=== PATIENT | female | born 1965 | race Caucasian/White ===

== ENCOUNTER → 2016-12-19 | Outpatient (CLI) | payer BC ==
--- NOTE | 2016-12-20 10:00 | EEG ---
DATE OF SERVICE: 12/19/2016 INDICATIONS FOR EXAMINATION: This patient is a 51-year-old female being evaluated for visual changes and possible seizure disorder. Patient complains of muscle jerks at night as well as during the day. AGE: 51Y EEG FINDINGS: A routine 21-channel, awake digital EEG recording was accomplished utilizing the 10 - 20 international system with bipolar and referential montages. The background activity in the most alert resting state consists of a low to medium amplitude, fairly well-developed and well-sustained 7 - 8 hertz activity over the posterior head regions. This posterior rhythm attenuates to eye opening. There is a small amount of low amplitude 18 - 20 Hz beta activity seen maximally over the anterior head regions. Muscle and movement artifact was observed on several occasions during the tracing. Hyperventilation failed to add any additional information to the tracing. No further activation was noted. Photic stimulation at flash frequencies of 2 - 30 Hz produced a good symmetrical occipital driving response. No epileptiform discharges were seen. IMPRESSION: This EEG is within normal limits for the patient's age. The EEG failed to reveal any focal, lateralized or epileptiform abnormalities. Clinical correlation is recommended.
== END | disposition home or self-care (01) ==
LOC: NEUROMAIN 09:28
PROVIDERS: ATTEND Family Medicine
DX: R41.82 Altered mental status, unspecified (principal)
CPT/HCPCS: 95819

== ENCOUNTER → 2017-01-02 | Outpatient (CLI) | payer BC ==
[2017-01-02 16:06] LABS: Blood Urea Nitrogen 19 mg/dL (7-17); Non-African American GFR(MDRD) >60 (>60 ml/min/1.73 sqM)
--- NOTE | 2017-01-02 21:05 | MR ---
EXAMINATION TYPE: MR brain wo/w con DATE OF EXAM: 01/02/2017 5:40 PM COMPARISON: NONE HISTORY: Dizziness, tiredness, memory issues, and forgetfulness per patient. Brain tumor per order. TECHNIQUE: Multiplanar, multisequence images of the brain and brainstem is performed without and with IV contras t, utilizing 18 mL intravenous MultiHance . FINDINGS: Diffusion weighted images demonstrate no evidence of a recent infarct or other diffusion ab normality. There is no extra-axial fluid collection or significant white matter signal abnormality. The ventricular system and cisternal spaces are normal in size and appearance. The brain volume is age appropriate. Midline structures demonstrate normal morphology. The craniocervical junction appears within normal limits. Post contrast images demonstrate no abnormal enhancement. The dural venous sinuses appear pa tent. The visualized sinuses are clear and the globes are intact. IMPRESSION: No significant finding is seen to account for patient's symptoms.
== END | disposition home or self-care (01) ==
LOC: RADMRIMAIN 15:38
PROVIDERS: ATTEND Psychiatry & Neurology Neurology
DX: C71.9 Malignant neoplasm of brain, unspecified (principal)
CPT/HCPCS: 82565; 84520; 70553; A9577

== ENCOUNTER → 2017-10-23 | Outpatient (CLI) | payer BC ==
--- NOTE | 2017-10-23 12:44 | CONS ---
CONSULTATION DATE OF SERVICE: 10/23/2017 A 52-year-old lady who had been evaluated in the sleep center for significant excessive daytime sleepiness, snoring, movements with her legs at night and recent significant memory problems. HISTORY OF PRESENT ILLNESS/SLEEP WAKE EVALUATION: Patient's usual sleep schedule from 8:30 p.m. until 4 or 5 a.m. with, basically 7 days a week. No problem with falling asleep at all. She falls asleep very quickly. No TV in bedroom. She snores loudly. Has a significant amount of movements during the night including kicking and her covers may go out in the morning. She wakes up tired, has difficulties to pay attention, falling asleep during the day, has problems with memory, concentration, irritability, depression. [place] Sleepiness Scale is extremely high range 22. If she could take naps, she could do it every day, usually in the afternoon. She has 2 small kids and that is why she is busy and she does not have time for naps. No history of hypnagogic hallucinations, sleep paralysis or cataplexy. PAST MEDICAL HISTORY: Positive for recent memory problems, when patient does not remember what she is doing, hypertension, bipolar depression and arthritis. PAST SURGICAL HISTORY: Appendectomy, tonsillectomy, and breast reduction surgery. MEDICATIONS: Benicar, meloxicam, Latuda, omega-3 supplement. SOCIAL HISTORY: Positive for smoking less than 1 pack a day for about 35 years. Alcohol consumption rarely, several times a year. FAMILY HISTORY: Hypertension, arthritis, snoring, headaches, mental illness. REVIEW OF SYSTEMS: Significant excessive daytime sleepiness, recent memory problems when patient does not remember what she is doing. Pain in the arms and the whole body. Sleepiness, kicking at night. No fevers. No double vision. No recent chest pain. No shortness of breath. No abdominal pain. No bleeding episodes. No blood in urine. No seizure episodes. PHYSICAL EXAM: During physical exam, lady without distress. VITAL SIGNS: BP 143/94, HR 68, RR 16, height 5 feet 1-1/2 inches, weight 189, BMI 31.1. Neck 16 inches in circumference. Temperature 97.6. Oxygen saturation on room air 97%. HEENT: PERRLA, EOMI. Oropharynx moderately low position of soft palate. Short distance between soft palate and posterior pharyngeal wall. Slight restriction of nasal breathing bilaterally. Neck: Supple, no JVD. Thyroid is not palpable. LUNGS: Clear to percussion and to auscultation. Good air exchange. No wheezing or rhonchi. HEART: S1, S2 regular. No murmurs, gallops, or rubs. ABDOMEN: Slightly obese. EXTREMITIES: Ankles up to 1+ swelling of the left side. TRANSPORT AIRCREWMAN: Awake, alert, and oriented X3. Cranial nerves 2 to 7 intact. There is no fasciculation or atrophy noted. No focal deficits observed. IMPRESSION: 1. Loud snoring, wide neck, significant excessive daytime sleepiness, possible obstructive sleep apnea-hypopnea syndrome. 2. History of kicking at night, however, covers out in the morning, periodic limb movements. 3. Recent significant memory problems when patient does not remember what she is doing. 4. Significant excessive daytime sleepiness. [place] Sleepiness Scale is 22. The patient may take naps any time. Differential diagnosis should include narcolepsy and hypersomnia, although no history of hypnagogic hallucinations, sleep paralysis or cataplexy. 5. Obesity, body mass index 35.1. 6. Hypertension. 7. History of bipolar disorder. 8. History of depression. 9. History of hand arthritis. 10.Status post tonsillectomy. 11.Status post appendectomy. 12.Status post breast reduction surgery. 13.Smoker for about 35 pack years. PLAN: 1. Polysomnogram for evaluation of patient's breathing during sleep and also to check for periodic limb movements. 2. CPAP/BiPAP titration if sleep study confirms obstructive sleep apnea-hypopnea syndrome. 3. Preferable position during sleep on the side. 4. No driving if patient feels any sleepiness. Patient is aware of civil and criminal liability for unsafe driving. 5. I will see patient for follow up visit to explain results of testing and following plan. 6. If sleep study revealed to be negative for physical abnormalities of sleep, we will proceed with multiple sleep latency test for objective evaluation of patient's symptoms of excessive daytime sleepiness. Thank you very much for allowing me to participate in management of your patient. Sincerely, Adama Paez MD, PhD, FAASM Diplomat of [place] [employer] [place] [employer] Teacher of [facility] [place] MMODL / IJN: [id number] /
== END | disposition home or self-care (01) ==
LOC: SLEEP 11:00
PROVIDERS: ATTEND Internal Medicine
DX: G47.61 Periodic limb movement disorder (principal); E66.9 Obesity, unspecified; I10 Essential (primary) hypertension; F17.200 Nicotine dependence, unspecified, uncomplicated; Z68.35 Body mass index [BMI] 35.0-35.9, adult; Z86.59 Personal history of other mental and behavioral disorders; Z87.39 Personal history of other diseases of the musculoskeletal system and connective tissue; Z90.89 Acquired absence of other organs; Z98.890 Other specified postprocedural states; Z79.1 Long term (current) use of non-steroidal anti-inflammatories (NSAID)
CPT/HCPCS: 99211

== ENCOUNTER 2017-11-25 11:23 | Day surgery (SDC) | payer BC ==
[2017-11-21 10:49] VITALS: BMI 33.8
[~2017-11-25 11:23] MED LIST: LACTATED RINGERS 1,000 ML IV SCH; LIDOCAINE 1% 20 ML VIAL (10MG/ML) FOR IV START INTRADERMA PRN
[2017-11-25 11:52] VITALS: RESP 16; TEMP 98.1
[2017-11-25] MEDS ORDERED: LIDOCAINE 1% 20 ML VIAL (10MG/ML) FOR IV START INTRADERMA ONE (12:01)
[2017-11-25] MEDS ORDERED: MIDAZOLAM 2 MG/2 ML VIAL ONE (12:23)
[2017-11-25] MEDS ORDERED: PROPOFOL 10 MG/ML 20 ML VIAL IV ONE (12:23)
[2017-11-25] MEDS ORDERED: fentaNYL (PF) 50 MCG/ML 2 ML AMP ONE (12:23)
--- NOTE | 2017-11-25 13:00 | P.PCN ---
Date of Procedure: 11/25/17 Procedure(s) Performed: Procedure: Total colonoscopy. Preoperative diagnosis: Screening for neoplasia. Postoperative diagnosis: Sigmoid diverticulosis with no evidence of acute diverticulitis, strictures, polyps or cancer. Preparation: HalfLytely prep. Sedation: Was provided by anesthesia. Brief clinical history: The patient is a 52-year-old female who is referred for this evaluation for screening for neoplasia age being her risk factor. She has no family history of colon cancer. The patient has no abdominal complaints, bleeding or anemia. This would be her first colonoscopy. Procedure: With the patient on her left lateral decubitus position and after informed consent and adequate sedation, the perianal area was inspected and it did not show any fissures or fistulas. There were no masses felt on digital rectal examination. The Olympus CFQ 160L video colonoscope was then inserted in the rectum in the usual fashion and advanced to the cecum. The mucosa appeared healthy. No polyps or tumors were seen. There were multiple diverticular orifices noted scattered in the sigmoid with no evidence of acute diverticulitis or strictures. I retroflexed the endoscope in the rectum before the endoscope was withdrawn. The patient tolerated the procedure well. Plan: The patient was reassured. She will follow up with you as planned and I recommended repeat exam in 10 years.
[2017-11-25 13:01] VITALS: BP 116/75
[2017-11-25 13:28] VITALS: PULSE 67
== END 2017-11-25 13:57 | disposition home or self-care (01) ==
LOC: ORWHC2ENDO 11:23
DX: Z12.11 Encounter for screening for malignant neoplasm of colon (principal); K57.30 Diverticulosis of large intestine without perforation or abscess without bleeding; I10 Essential (primary) hypertension; F32.9 Major depressive disorder, single episode, unspecified; Z88.1 Allergy status to other antibiotic agents; Z79.1 Long term (current) use of non-steroidal anti-inflammatories (NSAID); Z79.899 Other long term (current) drug therapy; Z90.49 Acquired absence of other specified parts of digestive tract
CPT/HCPCS: 81025; G0121; J2250; J3010; J2704

== ENCOUNTER → 2018-04-08 | Outpatient (CLI) | payer BC ==
--- NOTE | 2018-04-09 11:20 | MM ---
Reason for exam: screening (asymptomatic). Last mammogram was performed 2 years and 3 months ago. History: Patient had first child at age 41. Reductions of both breasts, 2004. Physical Findings: A clinical breast exam by your physician is recommended on an annual basis and results should be correlated with mammographic findings. MG Screening Mammo w CAD Bilateral CC and MLO view(s) were taken. Prior study comparison: January 19, 2016, bilateral MG screening mammo w CAD. February 01, 2014, bilateral MG screening mammo w CAD. The breast tissue is heterogeneously dense. This may lower the sensitivity of mammography. No suspicious abnormality. No significant changes when compared with prior studies. ASSESSMENT: Negative, BI-RAD 1 RECOMMENDATION: Routine screening mammogram of both breasts in 1 year.
== END | disposition home or self-care (01) ==
LOC: RADMAMWWP 10:19
PROVIDERS: ATTEND Family Medicine
DX: Z12.31 Encounter for screening mammogram for malignant neoplasm of breast (principal)
CPT/HCPCS: 77067

== ENCOUNTER → 2020-06-02 | Outpatient (CLI) | payer BC ==
--- NOTE | 2020-06-02 10:39 | XR ---
Bilateral hips HISTORY: Pain and bilateral hips, pain in left hip 2 views of each hip are submitted Fallopian tubal ligation clips noted incidentally in the pelvis. Bone mineralization, joint spaces an d alignment are maintained. There is calcification present at the greater trochanters possibly indica ting calcific tendinitis or chronic tendon tear. Phleboliths are present within the pelvis. IMPRESSION: No significant arthropathy. MRI may be of benefit. Additional findings above.
== END | disposition home or self-care (01) ==
LOC: RADXRMAIN 09:26
PROVIDERS: ATTEND Family Medicine
DX: M25.552 Pain in left hip (principal)
CPT/HCPCS: 73521

== ENCOUNTER → 2020-12-27 | Outpatient (CLI) | payer BC ==
--- NOTE | 2021-01-01 11:16 | MM ---
Reason for exam: screening (asymptomatic). Last mammogram was performed 2 years and 9 months ago. History: Patient is postmenopausal and had first child at age 41. Reductions of both breasts, 2004. Physical Findings: A clinical breast exam by your physician is recommended on an annual basis and results should be correlated with mammographic findings. MG Screening Mammo w CAD Bilateral CC and MLO view(s) were taken. Prior study comparison: April 08, 2018, bilateral MG screening mammo w CAD. January 19, 2016, bilateral MG screening mammo w CAD. There are scattered fibroglandular densities. No significant changes when compared with prior studies. ASSESSMENT: Benign, BI-RAD 2 RECOMMENDATION: Routine screening mammogram of both breasts in 1 year.
== END | disposition home or self-care (01) ==
LOC: RADMAMWWP 14:32
PROVIDERS: ATTEND Family Medicine
DX: Z12.31 Encounter for screening mammogram for malignant neoplasm of breast (principal); Z78.0 Asymptomatic menopausal state
CPT/HCPCS: 77067

== ENCOUNTER → 2021-04-06 | Outpatient (CLI) | payer BC ==
--- NOTE | 2021-04-08 09:17 | CT ---
EXAMINATION TYPE: CT abdomen w con DATE OF EXAM: 04/06/2021 COMPARISON: None HISTORY: ventral hernia CT DLP: 1217 mGycm CONTRAST: CT scan of the abdomen and pelvis is performed with Oral Contrast and with IV Contrast, patient injec mindy with 100 mL of Isovue 300. FINDINGS: LUNG BASES-: No visible nodule. No infiltrate. LIVER/GB: Cholesterol gallstones identified. No space occupying hepatic lesion. Biliary tree is of no rmal caliber. PANCREAS: No inflammation. No distinct mass. SPLEEN: No splenic enlargement. No lesion seen. ADRENALS: No nodule. No thickening. KIDNEYS/BLADDER: No hydronephrosis. No nephrolithiasis. No distinct renal mass. Urinary bladder g rossly unremarkable. BOWEL: Normal appendix. Normal bowel caliber. No inflammation. LYMPH NODES: No greater than 1cm abdominal or pelvic lymph nodes are appreciated. AORTA: No significant abnormality. OSSEOUS STRUCTURES: No significant abnormality is seen. OTHER: No evidence of ventral hernia. IMPRESSION: 1. Cholesterol gallstones 2.No evidence of ventral hernia.
== END | disposition home or self-care (01) ==
LOC: RADCTMAIN 15:50
PROVIDERS: ATTEND Family Medicine
DX: K80.20 Calculus of gallbladder without cholecystitis without obstruction (principal)
CPT/HCPCS: 74160; Q9967

== ENCOUNTER → 2021-05-25 | Outpatient (CLI) | payer BC | END | disposition home or self-care (01) | LOC: LABWHC1 11:49 | PROVIDERS: ATTEND Surgery Plastic and Reconstructive Surgery | DX: I11.9 Hypertensive heart disease without heart failure (principal) | CPT/HCPCS: 36415; 93005 ==

== ENCOUNTER → 2021-11-14 | Outpatient (CLI) | payer BC ==
[2021-11-14 18:54] LABS: HCT 43.7 % (37.2-46.3); HGB 13.7 g/dL (12.0-15.0); MCHC 31.4 g/dL (32.0-37.0); MCV 92.6 fL (80.0-97.0); Mean Platelet Volume 11.8 fL (9.5-12.2); NRBC Per 100 WBC 0 /100 WBCS (0.0-0.0); Platelet Count 302 X 10*3/uL (140-440); RBC 4.72 X 10*6/uL (4.10-5.20); RDW 13.3 % (11.5-14.5); WBC 8.66 X 10*3/uL (4.50-10.00)
== END | disposition home or self-care (01) ==
LOC: LABPAT 12:12
PROVIDERS: ATTEND Surgery Plastic and Reconstructive Surgery
DX: Z01.812 Encounter for preprocedural laboratory examination (principal); K81.9 Cholecystitis, unspecified
CPT/HCPCS: 84132; 85027

== ENCOUNTER 2021-11-16 07:40 | Day surgery (SDC) | payer BC ==
[2021-11-13 12:40] VITALS: BMI 36.6
--- NOTE | 2021-11-16 06:56 | P.GSHP ---
History of Present Illness H&P Date: 11/16/21 CHIEF COMPLAINT: Cholecystitis HISTORY OF PRESENT ILLNESS: The patient is a 56-year-old female who presents with history of epigastric including right upper quadrant abdominal pain. She underwent diagnostic studies for her gallbladder. Separately her clinical picture was consistent with cholecystitis. Now she presents for surgical intervention. PAST MEDICAL HISTORY: Please see list PAST SURGICAL HISTORY: Please see list MEDICATIONS: Please see list ALLERGIES: Please see list SOCIAL HISTORY: Please see list FAMILY HISTORY: Please see list REVIEW OF ORGAN SYSTEMS: CONSTITUTIONAL: No reports of fevers or chills. HEENT: Denies any troubles with the vision or hearing. PHYSICAL EXAM: VITAL SIGNS: Afebrile vital signs stable GENERAL: Well-developed pleasant in no acute distress. HEENT: No scleral icterus. Extraocular movements grossly intact. Moist buccal mucosa. NECK: Supple without lymphadenopathy. CHEST: Unlabored respirations. Equal bilateral excursions. CARDIOVASCULAR: Regular rate regular rhythm rhythm. Distal 2+ pulses. ABDOMEN: Soft, nondistended. Tender along the epigastrium and right upper quadrant. MUSCULOSKELETAL: No clubbing, cyanosis, or edema. NEURO: Cranial nerves II to XII within normal limits. No focal or lateralizing signs. PSYCH: Alert and oriented to person, place and time. SKIN: Well-perfused good skin turgor. ASSESSMENT: 1. Epigastric and right upper quadrant abdominal pain 2. Chronic cholecystitis 3. Symptomatic gallstones. PLAN: 1. Will need a robotic cholecystectomy possible open. Benefits and risks were described. 2. Heparin for DVT prophylaxis 5000 units. 3. Antibiotic prophylaxis. Past Medical History Past Medical History: Hypertension Additional Past Medical History / Comment(s): HEART MURMUR SINCE CHILD. GALLBLADDER DISORDER. RINGING IN BILAT EARS History of Any Multi-Drug Resistant Organisms: None Reported Past Surgical History: Appendectomy, Breast Surgery, Tonsillectomy, Tubal Liga tion Additional Past Surgical History / Comment(s): BREAST REDUCTION, COLONOSCOPY, RECTAL SURGERY AFTER SON BORN Past Anesthesia/Blood Transfusion Reactions: Motion Sickness Smoking Status: Former smoker, Vaper - Past Family History Mother Family Medical History: Cancer Medications and Allergies Home Medications Medication Instructions Recorded Confirmed Type Meloxicam 15 mg PO DAILY 11/21/17 11/13/21 History Olmesartan/Hydrochlorothiazide 1 each PO DAILY 11/13/21 11/13/21 History [Benicar Hct 40-12.5 mg Tablet] Allergies Allergy/AdvReac Type Severity Reaction Status Date / Time azithromycin Allergy Rapid Verified 11/13/21 12:31 [From Zithromax Z-Adal] Heart Rate
[~2021-11-16 07:40] MED LIST changes: +ACETAMINOPHEN TAB 500 MG TAB PO PRN; +GABAPENTIN 300 MG CAP PO PRN; +HEPARIN SODIUM,PORCINE/PF 5,000 UNIT/0.5 ML SYRINGE SQ PRN; +INDOCYANINE GREEN 25 MG VIAL IV PRN; -LACTATED RINGERS 1,000 ML IV SCH; -LIDOCAINE 1% 20 ML VIAL (10MG/ML) FOR IV START INTRADERMA PRN; +SCOPOLAMINE 1.5MG/72HR PATCH TRANSDERM PRN
[2021-11-16] MEDS ORDERED: HYDROmorphone 0.5 MG/0.5 ML SYRINGE IVP PRN (07:55)
[2021-11-16] MEDS ORDERED: LACTATED RINGERS 1,000 ML IV SCH (07:55)
[2021-11-16] MEDS ORDERED: ONDANSETRON 4 MG/2 ML VIAL IVP ONE (07:55)
[2021-11-16] MEDS ORDERED: DEXAMETHASONE SOD PHOSPHATE 4 MG/ML 1 ML VIAL IV ONE (07:55)
[2021-11-16] MEDS ORDERED: SCOPOLAMINE 1.5MG/72HR PATCH TRANSDERM ONE (07:55)
[2021-11-16] MEDS ORDERED: MIDAZOLAM 2 MG/2 ML VIAL IV PRN (07:55)
[2021-11-16] MEDS ORDERED: MIDAZOLAM 2 MG/2 ML VIAL ONE (09:08)
[2021-11-16] MEDS ORDERED: PHENYLEPHRINE-0.9% NACL SYG 1,000 MCG/10 ML SYRINGE ONE (09:08)
[2021-11-16] MEDS ORDERED: SUCCINYLCHOLINE CHLORIDE 100 MG/5 ML SYR IV ONE (09:08)
[2021-11-16] MEDS ORDERED: fentaNYL (PF) 50 MCG/ML 2 ML AMP ONE (09:08)
[2021-11-16] MEDS ORDERED: NEOSTIGMINE 1 MG/ML 10 ML VIAL ONE (09:08)
[2021-11-16] MEDS ORDERED: HYDROmorphone (PF) 1 MG/ML ONE (09:08)
[2021-11-16] MEDS ORDERED: PROPOFOL 10 MG/ML 20 ML VIAL IV ONE (09:08)
[2021-11-16] MEDS ORDERED: ROCURONIUM 10 MG/ML (5 ML VIAL) IV ONE (09:08)
[2021-11-16] MEDS ORDERED: INDOCYANINE GREEN 25 MG VIAL IV ONE (09:08)
[2021-11-16] MEDS ORDERED: GLYCOPYRROLATE 0.2 MG/ML 2 ML VIAL ONE (09:08)
[2021-11-16] MEDS ORDERED: LIDOCAINE 1% INJ 10MG/ML (20 ML MDV) ONE (09:08)
[2021-11-16 09:35] LABS: ALT 31 U/L (4-34); AST 25 U/L (14-36); African American GFR (CKD) >90 (>60 ml/min/1.73 sqM); Alkaline Phosphatase 82 U/L (38-126); Anion Gap 3 mmol/L; Blood Urea Nitrogen 21 mg/dL (7-17); Calcium 8.9 mg/dL (8.4-10.2); Carbon Dioxide 32 mmol/L (22-30); Chloride 102 mmol/L (98-107); Glucose 104 mg/dL (74-99); Non-African American GFR(CKD) >90 (>60 ml/min/1.73 sqM); Potassium 3.7 mmol/L (3.5-5.1); Sodium 137 mmol/L (137-145); Total Bilirubin 0.8 mg/dL (0.2-1.3); Total Protein 6.6 g/dL (6.3-8.2)
[2021-11-16] MEDS ORDERED: BUPIVACAIN-EPI 0.25%-1:200,000 30 ML VIAL SQ ONE ×2 (09:42→09:47)
[2021-11-16] MEDS ORDERED: LACTATED RINGERS 1,000 ML IV ONE (10:45)
[2021-11-16 10:48] VITALS: TEMP 97
--- NOTE | 2021-11-16 10:55 | P.OP ---
Date of Procedure: 11/16/21 Description of Procedure: SURGEON: JAILYN PARADA MD PREOPERATIVE DIAGNOSES: 1. Chronic cholecystitis 2. Symptomatic gallstones 3. Hypertension 4. Morbid obesity due to excess calories, BMI 37.9 POSTOPERATIVE DIAGNOSES: 1. Chronic cholecystitis 2. Symptomatic gallstones 3. Hypertension 4. Morbid obesity due to excess calories, BMI 37.9 5. Peritoneal adhesions OPERATION: 1. Robotic-assisted da Farida Xi laparoscopic cholecystectomy, multiport with FIREFLY 2. Robotic-assisted da Farida Xi laparoscopic lysis of adhesions ESTIMATED BLOOD LOSS: 5 mL. SPECIMENS REMOVED: Gallbladder. COMPLICATIONS: None. OPERATIVE FINDINGS: 1. Adhesions along the infundibulum and body of the gallbladder consistent with chronic cholecystitis 2. Moderate bulb was fundus requiring dome down technique for cholecystectomy 3. Mildly dilated common bile duct 4. Gallstones over 0.5 cm to 1 cm palpated within the gallbladder INDICATIONS: The patient is a 56 year-old female who presents with epigastric right upper quadrant pain, symptomatic gallstones. Surgical intervention with cholecystectomy was described. Robotic assisted laparoscopic approach was described. Benefits and risks of the procedure including but not limited to bleeding, infection, injury to the biliary tree was reviewed. Informed consent was obtained. DESCRIPTION OF PROCEDURE: Patient was brought to the operating room, placed in supine position. After general induction, the abdomen had been prepped and draped in standard sterile fashion. The robotic da Farida XI system was primed. After a timeout protocol was performed, the patient had been prepped and draped in standard sterile fashion. The patient was injected with indocyanine green. A 5 mm 0 degrees laparoscopic trocar entry was performed along the left upper quadrant. The abdomen insufflated to 15 mmHg pressure which was tolerated well. Diagnostic laparoscopy demonstrated no injury to bowel viscera or mesentery. The liver surface was unremarkable. A moderately distended gallbladder was identified adding complexity to the case. Next, two 8 mm robotic ports were placed along the right upper abdomen. The camera 8-mm port was maintained along the epigastrium. Another 8 mm port was placed along the left upper abdominal wall after exchanging the 5 mm port. Please note that the ports were placed at least 10 to 15 cm away from the target anatomy of the gallbladder. The robot was docked along the left lateral abdomen. The patient was repositioned in reverse Trendelenburg position with the right side up. Using a grasper for arm 3, a grasper for arm 4, including hook cautery for arm 1, the robotic system was docked and primed as described. Instruments were interchanged by the pharmacist assistant including hook cautery, Bovie cautery and clip appliers. I had sat at the console. The gallbladder was reflected towards the dome of the liver. The gallbladder was moderately distended adding complexity to the case. Initial dissection was performed on the gallbladder infundibulum using indocyanine green to illuminate the cystic duct and common bile duct. Due to moderate distention of the infundibulum, dome down technique was performed removing the gallbladder from the hepatic fossa starting from the fundus towards the infundibulum. Using a sponge, the liver was reflected towards the diaphragm and starting at the gallbladder fundus, hook cautery was used to find the avascular plane between the liver and the gallbladder. As the gallbladder was dissected from the hepatic fossa, hemostasis was checked. Next, indocyanine green was used to confirm the common bile duct as well as cystic duct. The cystic duct was short and dissection was performed at the junction of the cystic duct and infundibulum. The common bile duct was mildly dilated. The infundibulum was retracted laterally to expose the cystic duct away from the common bile duct. The cystic duct was dissected free from its surrounding tissue. FIREFLY was used to identify the cystic structures. A critical view of safety was obtained. Large PLASTIC clips were used throughout the entire case. Using a clip bowling ball weigher and packer, a clip was placed at the junction of the infundibulum and cystic duct. The cystic duct was divided using vessel sealer. Next, the cystic artery was divided using vessel sealer. Electro-Bovie cautery and vessel sealer was used to remove the gallbladder without decompression. Hemostasis was checked and found to be adequate. The robot was undocked. I re-scrubbed into the case. A 10 mm Endo Catch bag was used to remove the gallbladder in total via the left upper quadrant incision after widening the incision. The specimen was removed from the abdominal cavity. All pneumoperitoneum instruments were evacuated from the abdominal cavity. The incisions were cleansed using dilute hydrogen peroxide. The incisions were reapproximated using 4-0 Monocryl in an interrupted subcuticular fashion. Please note along the trocar sites, local anesthetic was placed as a field block prior to insertion of all instruments. Liquid glue was applied to the skin. At the end of the procedure needle, sponge, and instrument count had been verified correct by the director medical surgical. The patient was transferred to postanesthesia care unit in stable condition. Intraoperative films were shared with the patient's family who were pleased with the level of care. Plan - Discharge Summary Discharge Rx Participant: Yes New Discharge Prescriptions: New Simethicone [Gas-X] 125 mg PO AC-TID PRN #20 capsule PRN Reason: Pain Acetaminophen Tab [Tylenol Tab] 1,000 mg PO Q6HR PRN #30 tablet PRN Reason: Pain Continue Meloxicam 15 mg PO DAILY Olmesartan/Hydrochlorothiazide [Benicar Hct 40-12.5 mg Tablet] 1 each PO DAILY Discharge Medication List Meloxicam 15 mg PO DAILY 11/21/17 [History] Olmesartan/Hydrochlorothiazide [Benicar Hct 40-12.5 mg Tablet] 1 each PO DAILY 11/13/21 [History] Acetaminophen Tab [Tylenol Tab] 1,000 mg PO Q6HR PRN #30 tablet 11/16/21 [Rx] Simethicone [Gas-X] 125 mg PO AC-TID PRN #20 capsule 11/16/21 [Rx] Follow up Appointment(s)/Referral(s): Jailyn Parada MD [STAFF PHYSICIAN] - 11/20/21 (Telehealth) Patient Instructions/Handouts: Laparoscopic Cholecystectomy (DC), Low Fat Diet (DC) Activity/Diet/Wound Care/Special Instructions: Recommend low-fat diet for the next 2 days. No lifting over 10 pounds in 2 weeks until November 30. May shower. No bath tub soaks for two weeks until November 30. Diet as tolerated. Use Tylenol, simethicone and ibuprofen or Aleve scheduled for the next 24-48 hours for best pain relief. Use ice along incisions for today to prevent swelling. Discharge Disposition: HOME SELF-CARE
[2021-11-16] MEDS ORDERED: HYDROmorphone 0.5 MG/0.5 ML SYRINGE IVP ONE (10:58)
[2021-11-16] MEDS ORDERED: RACEPINEPHRINE 2.25% NEB 0.5 ML NEBU INHALATION ONE (11:04)
[2021-11-16] MEDS ORDERED: DEXAMETHASONE SOD PHOSPHATE 10 MG/ML 1 ML VIAL IVP ONE (11:15)
[2021-11-16 12:01] VITALS: RESP 16
[2021-11-16 12:15] VITALS: BP 117/60; PULSE 89
== END 2021-11-16 13:03 | disposition home or self-care (01) ==
LOC: OR 07:40
PROVIDERS: ATTEND Surgery Plastic and Reconstructive Surgery
DX: K80.10 Calculus of gallbladder with chronic cholecystitis without obstruction (principal); K82.8 Other specified diseases of gallbladder; K66.0 Peritoneal adhesions (postprocedural) (postinfection); I10 Essential (primary) hypertension; R01.1 Cardiac murmur, unspecified; H93.13 Tinnitus, bilateral; Z90.49 Acquired absence of other specified parts of digestive tract; Z98.51 Tubal ligation status; Z98.890 Other specified postprocedural states; F17.290 Nicotine dependence, other tobacco product, uncomplicated; Z80.9 Family history of malignant neoplasm, unspecified; Z79.1 Long term (current) use of non-steroidal anti-inflammatories (NSAID); Z79.899 Other long term (current) drug therapy; Z88.1 Allergy status to other antibiotic agents; E66.01 Morbid (severe) obesity due to excess calories; Z68.37 Body mass index [BMI] 37.0-37.9, adult
CPT/HCPCS: 47563; S2900; 80053; 88304

== ENCOUNTER → 2022-06-28 | Outpatient (CLI) | payer BC ==
--- NOTE | 2022-06-28 13:59 | CT ---
EXAMINATION TYPE: CT abdomen wo con DATE OF EXAM: 06/28/2022 COMPARISON: 04/06/2021 HISTORY: PER PT SHE HAS LUQ PAIN. SHARP PAIN UNDER RIBS WHEN BREATHING CT DLP: 723 mGycm Automated exposure control for dose reduction was used. TECHNIQUE: Helical acquisition of images was performed from the lung bases through the top of iliac crest to include entire abdomen. CONTRAST: Performed with Oral Contrast and without IV contrast. FINDINGS: The lung bases are clear. There is surgical absence of the gallbladder and no biliary ductal dilatation. There is no organomegaly involving the liver, pancreas, spleen or adrenal glands. The bowel loops are normal in caliber and there is no evidence of obstruction. There is mild to moder ate abnormal density in the pericolic fat in the region of the splenic flexure highly suggestive of a cute diverticulitis. There is no discrete abscess. There is no free intraperitoneal air or fluid. There are no renal calcifications or hydronephrosis. The caliber the abdominal aorta is normal. There is no retroperitoneal adenopathy. Visualized osseous structures are intact. IMPRESSION: 1. Findings highly suggestive of acute diverticulitis of the colon in the region of the splenic flexu re. There is no bowel obstruction or abscess. There is no free intraperitoneal air or fluid. 2. Cholecystectomy performed in the interval since the prior study.
== END | disposition home or self-care (01) ==
LOC: RADCTMAIN 12:21
PROVIDERS: ATTEND Family Medicine
DX: R10.32 Left lower quadrant pain (principal); Z90.49 Acquired absence of other specified parts of digestive tract
CPT/HCPCS: 74150; Q9967

== ENCOUNTER 2023-07-23 10:21 | Emergency (ER) | payer BC ==
[2023-07-23 10:41] VITALS: RESP 18; TEMP 99.7
--- NOTE | 2023-07-23 11:15 | XR ---
EXAMINATION TYPE: XR chest 2V DATE OF EXAM: 07/23/2023 COMPARISON: NONE TECHNIQUE: PA and lateral views submitted. HISTORY: Dizziness FINDINGS: Mild hyperinflation correlate for COPD. Arthropathy in the AC joints. Calcification in the soft tissue the neck likely related to carotid artery atherosclerotic disease. The lungs are clear and there is no pneumothorax, pleural effusion, or focal pneumonia. Heart size normal and no overt failure. Osseous structures demonstrate hypertrophic and degenerative changes of the spine. IMPRESSION: 1. No acute process.
[2023-07-23 11:18] LABS: Prothrombin Time 11.4 sec (10.0-12.5)
[2023-07-23 11:23] LABS: Basophils % (A) 0 %; Eosinophils # (A) 0.2 k/uL (0-0.7); Eosinophils % (A) 2 %; HCT 43.4 % (34.0-46.0); HGB 14.4 gm/dL (11.4-16.0); Lymphocytes # (A) 1.5 k/uL (1.0-4.8); Lymphocytes % (A) 22 %; MCH 30.3 pg (25.0-35.0); MCHC 33.1 g/dL (31.0-37.0); MCV 91.5 fL (80.0-100.0); Mean Platelet Volume 9.1; Monocytes # (A) 0.2 k/uL (0-1.0); Monocytes % (A) 3 %; Neutrophils # (A) 4.8 k/uL (1.3-7.7); Neutrophils % (A) 71 %; Platelet Count 249 k/uL (150-450); RBC 4.75 m/uL (3.80-5.40); RDW 13.4 % (11.5-15.5); WBC 6.9 k/uL (3.8-10.6)
[2023-07-23 11:28] LABS: ALT 52 U/L (4-34); AST 37 U/L (14-36); African American GFR (CKD) >90 (>60 ml/min/1.73 sqM); Albumin 4.7 g/dL (3.5-5.0); Alkaline Phosphatase 106 U/L (38-126); Anion Gap 11 mmol/L; Blood Urea Nitrogen 17 mg/dL (7-17); Calcium 9.6 mg/dL (8.4-10.2); Carbon Dioxide 25 mmol/L (22-30); Chloride 107 mmol/L (98-107); Glucose 106 mg/dL (74-99); Non-African American GFR(CKD) >90 (>60 ml/min/1.73 sqM); Sodium 143 mmol/L (137-145); Total Bilirubin 0.8 mg/dL (0.2-1.3); Total Protein 7.4 g/dL (6.3-8.2)
[2023-07-23 12:35] LABS: Appearance,Urine Clear (Clear); Bilirubin,Urine Negative (Negative); Blood,Urine Negative (Negative); Color,Urine Colorless; Glucose,Urine (UA) Negative (Negative); Ketones,Urine Negative (Negative); Leukocyte Esterase,Urine Negative (Negative); Nitrite,Urine Negative (Negative); PH, Urine 6.5 (5.0-8.0); Protein,Urine Negative (Negative); Specific Gravity,Urine 1.015 (1.001-1.035); Urobilinogen,Urine <2.0 mg/dL (<2.0)
[2023-07-23] MEDS ORDERED: SODIUM CHLORIDE 0.9% 1,000 ML IV ONE (12:37)
--- NOTE | 2023-07-23 14:00 | ED ---
General Adult HPI - General Chief complaint: Dizziness Stated complaint: weakness, light headed took bp at home over 200 Time Seen by Provider: 07/23/23 10:35 Source: patient Mode of arrival: ambulatory Limitations: no limitations - History of Present Illness Initial comments: 57-year-old female presents emergency department reporting to some sophiae dness. States that she woke in the middle the night and felt lightheaded. She thought it was because she was tired and therefore went back to sleep. She woke up again and continued to be lightheaded. States that she feels fuzzy. She took her blood pressure and it was high. Her blood pressure is normally between 150-160 systolic however it was over 200. She did take her blood pressure medication at home today. She denies any headache visual changes. No chest pain or shortness of breath. Denies vertiginous symptoms. No ear pain or sore throat. Denies any abdominal pain. No recent medication changes. No other alleviating, precipitating or modifying factors - Related Data Home Medications Medication Instructions Recorded Confirmed Losartan [Cozaar] 25 mg PO DAILY 07/23/23 07/23/23 Allergies Allergy/AdvReac Type Severity Reaction Status Date / Time azithromycin Allergy Rapid Verified 07/23/23 13:02 [From Zithromax Z-Adal] Heart Rate Review of Systems ROS Statement: Those systems with pertinent positive or pertinent negative responses have been documented in the HPI. ROS Other: All systems not noted in ROS Statement are negative. Past Medical History Past Medical History: Hypertension Additional Past Medical History / Comment(s): HEART MURMUR SINCE CHILD. GALLB LADDER DISORDER. RINGING IN BILAT EARS History of Any Multi-Drug Resistant Organisms: None Reported Past Surgical History: Appendectomy, Breast Surgery, Tonsillectomy, Tubal Ligation Additional Past Surgical History / Comment(s): BREAST REDUCTION, COLONOSCOPY, RECTAL SURGERY AFTER SON BORN Past Anesthesia/Blood Transfusion Reactions: Motion Sickness Past Psychological History: Depression Smoking Status: Former smoker, Vaper Past Alcohol Use History: None Reported Past Drug Use History: None Reported - Past Family History Mother Family Medical History: Cancer General Exam Limitations: no limitations General appearance: alert, in no apparent distress Head exam: Present: atraumatic, normocephalic, normal inspection Eye exam: Present: normal appearance, PERRL, EOMI. Absent: scleral icterus, conjunctival injection, periorbital swelling ENT exam: Present: normal exam, mucous membranes moist Neck exam: Present: normal inspection. Absent: tenderness, meningismus, lympha denopathy Respiratory exam: Present: normal lung sounds bilaterally. Absent: respiratory distress, wheezes, rales, rhonchi, stridor Cardiovascular Exam: Present: regular rate, normal rhythm, normal heart sounds. Absent: systolic murmur, diastolic murmur, rubs, gallop, clicks GI/Abdominal exam: Present: soft, normal bowel sounds. Absent: distended, tenderness, guarding, rebound, rigid Extremities exam: Present: normal inspection, full ROM, normal capillary refill. Absent: tenderness, pedal edema, joint swelling, calf tenderness Back exam: Present: normal inspection Neurological exam: Present: alert, oriented X3, CN II-XII intact Psychiatric exam: Present: normal affect, normal mood Skin exam: Present: warm, dry, intact, normal color. Absent: rash Course Vital Signs 07/23/23 07/23/23 07/23/23 10:31 12:14 12:45 Temperature 99.7 F H Pulse Rate 79 77 Respiratory 18 Rate Blood Pressure 193/106 166/87 Blood Pressure 160/84 [Sitting] Blood Pressure 156/83 [Standing] Blood Pressure 148/82 [Supine] O2 Sat by Pulse 98 Oximetry 07/23/23 14:05 Temperature Pulse Rate 67 Respiratory 18 Rate Blood Pressure 177/98 Blood Pressure [Sitting] Blood Pressure [Standing] Blood Pressure [Supine] O2 Sat by Pulse 97 Oximetry Medical Decision Making - Medical Decision Making Was pt. sent in by a medical professional or institution (, PA, CHUCKING MACHINE OPERATOR, urgent care, hospital, or intermediate...) When possible be specific @ -No Did you speak to anyone other than the patient for history (EMS, parent, family, police, friend...)? What history was obtained from this source @ -No Did you review nursing and triage notes (agree or disagree)? Why? @ -I reviewed and agree with nursing and triage notes Were old charts reviewed (outside hosp., previous admission, EMS record, old EKG, old radiological studies, urgent care reports/EKG's, intermediate records)? Report findings @ -No old charts were reviewed Differential Diagnosis (chest pain, altered mental status, abdominal pain women, abdominal pain men, vaginal bleeding, weakness, fever, dyspnea, syncope, headache, dizziness, GI bleed, back pain, seizure, CVA, palpatations, mental health, musculoskeletal)? @ -Differential Dizziness: Benign paroxysmal positional Vertigo, Menieres disease, otitis media, acoustic neuroma, vertebrobasilar insufficiency, cerebellar stroke, encephalitis, hypovolemic, arrhythmia, coronary artery syndrome, anemia, this is not meant to be an all-inclusive list EKG interpreted by me (3pts min.). @ -Yes and demonstrates sinus rhythm rate of 67. MI interval 156. QRS 98. QTC 387. No acute ST segment elevations or depressions X-rays interpreted by me (1pt min.). @ -Yes and demonstrates no acute process CT interpreted by me (1pt min.). @ -None done U/S interpreted by me (1pt. min.). @ -None done What testing was considered but not performed or refused? (CT, X-rays, U/S, labs)? Why? @ -None What meds were considered but not given or refused? Why? @ -None Did you discuss the management of the patient with other professionals (professionals i.e. , PA, CHUCKING MACHINE OPERATOR, lab, RT, psych nurse, dialysis social worker, cook fruit, teacher, chief clinical officer, telephonic case manager)? Give summary @ -No Was smoking cessation discussed for >3mins.? @ -No Was critical care preformed (if so, how long)? @ -No Were there social determinants of health that impacted care today? How? (Homelessness, low income, unemployed, alcoholism, drug addiction, transportation, low edu. Level, literacy, decrease access to med. care, usp, rehab)? @ -No Was there de-escalation of care discussed even if they declined (Discuss DNR or withdrawal of care, Hospice)? DNR status @ -No What co-morbidities impacted this encounter? (DM, HTN, Smoking, COPD, CAD, Cancer, CVA, ARF, Chemo, Hep., AIDS, mental health diagnosis, sleep apnea, morbid obesity)? @ -Hypertension Was patient admitted / discharged? Hospital course, mention meds given and route, prescriptions, significant lab abnormalities, going to OR and other pertinent info. @ -Upon arrival patient was placed into room 152. Thorough history and physical exam was performed. 12 EKG was obtained. Laboratory studies are conducted. Patient's blood pressure does improve on her own. Upon return results I did discuss them with the patient. Discussed diagnosis, differential and treatment options. Patient feels improved at this time after IV fluids. She'll be discharged home and instructed to follow up with her primary care doct or. May obtain an echo (last was 2 months ago) or carotid ultrasound if her symptoms persist. Keep a log of her blood pressures and follow up with her doctor. Return for any new or worsening symptoms. Patient was agreeable to plan and was discharged in stable condition Undiagnosed new problem with uncertain prognosis? @ -yes Drug Therapy requiring intensive monitoring for toxicity (Heparin, Nitro, Insulin, Cardizem)? @ -No Were any procedures done? @ -No Diagnosis/symptom? @ -Near-syncope, accelerated hypertension Acute, or Chronic, or Acute on Chronic? @ -Acute Uncomplicated (without systemic symptoms) or Complicated (systemic symptoms)? @ -Complicated Side effects of treatment? @ -No Exacerbation, Progression, or Severe Exacerbation? @ -No Poses a threat to life or bodily function? How? (Chest pain, [place], [place], pneumonia, PE, COPD, DKA, ARF, appy, cholecystitis, CVA, Diverticulitis, Homicidal, Suicidal, threat to staff... and all critical care pts) @ -No - Lab Data Result diagrams: 07/23/23 10:35 07/23/23 10:35 Lab Results 07/23/23 07/23/23 07/23/23 Range/Units 10:35 10:35 10:35 WBC 6.9 (3.8-10.6) k/uL RBC 4.75 (3.80-5.40) m/uL Hgb 14.4 (11.4-16.0) gm/dL Hct 43.4 (34.0-46.0) % MCV 91.5 (80.0-100.0) fL MCH 30.3 (25.0-35.0) pg MCHC 33.1 (31.0-37.0) g/dL RDW 13.4 (11.5-15.5) % Plt Count 249 (150-450) k/uL MPV 9.1 Neutrophils % 71 % Lymphocytes % 22 % Monocytes % 3 % Eosinophils % 2 % Basophils % 0 % Neutrophils # 4.8 (1.3-7.7) k/uL Lymphocytes # 1.5 (1.0-4.8) k/uL Monocytes # 0.2 (0-1.0) k/uL Eosinophils # 0.2 (0-0.7) k/uL Basophils # 0.0 (0-0.2) k/uL PT (10.0-12.5) sec INR (<1.2) Sodium 143 (137-145) mmol/L Potassium 4.0 (3.5-5.1) mmol/L Chloride 107 (98-107) mmol/L Carbon Dioxide 25 (22-30) mmol/L Anion Gap 11 mmol/L BUN 17 (7-17) mg/dL Creatinine 0.55 (0.52-1.04) mg/dL Est GFR (CKD-EPI)AfAm >90 (>60 ml/min/1.73 sqM) Est GFR (CKD-EPI)NonAf >90 (>60 ml/min/1.73 sqM) Glucose 106 H (74-99) mg/dL Calcium 9.6 (8.4-10.2) mg/dL Total Bilirubin 0.8 (0.2-1.3) mg/dL AST 37 H (14-36) U/L ALT 52 H (4-34) U/L Alkaline Phosphatase 106 (38-126) U/L Troponin I <0.012 (0.000-0.034) ng/mL Total Protein 7.4 (6.3-8.2) g/dL Albumin 4.7 (3.5-5.0) g/dL Urine Color Urine Appearance (Clear) Urine pH (5.0-8.0) Ur Specific [place] (1.001-1.035) Urine Protein (Negative) Urine Glucose (UA) (Negative) Urine Ketones (Negative) Urine Blood (Negative) Urine Nitrite (Negative) Urine Bilirubin (Negative) Urine Urobilinogen (<2.0) mg/dL Ur Leukocyte Esterase (Negative) Influenza Type A (PCR) (Not Detectd) Influenza Type B (PCR) (Not Detectd) RSV (PCR) (Not Detectd) SARS-CoV-2 (PCR) (Not Detectd) 07/23/23 07/23/23 07/23/23 Range/Units 10:35 12:07 12:17 WBC (3.8-10.6) k/uL RBC (3.80-5.40) m/uL Hgb (11.4-16.0) gm/dL Hct (34.0-46.0) % MCV (80.0-100.0) fL MCH (25.0-35.0) pg MCHC (31.0-37.0) g/dL RDW (11.5-15.5) % Plt Count (150-450) k/uL MPV Neutrophils % % Lymphocytes % % Monocytes % % Eosinophils % % Basophils % % Neutrophils # (1.3-7.7) k/uL Lymphocytes # (1.0-4.8) k/uL Monocytes # (0-1.0) k/uL Eosinophils # (0-0.7) k/uL Basophils # (0-0.2) k/uL PT 11.4 (10.0-12.5) sec INR 1.0 (<1.2) Sodium (137-145) mmol/L Potassium (3.5-5.1) mmol/L Chloride (98-107) mmol/L Carbon Dioxide (22-30) mmol/L Anion Gap mmol/L BUN (7-17) mg/dL Creatinine (0.52-1.04) mg/dL Est GFR (CKD-EPI)AfAm (>60 ml/min/1.73 sqM) Est GFR (CKD-EPI)NonAf (>60 ml/min/1.73 sqM) Glucose (74-99) mg/dL Calcium (8.4-10.2) mg/dL Total Bilirubin (0.2-1.3) mg/dL AST (14-36) U/L ALT (4-34) U/L Alkaline Phosphatase (38-126) U/L Troponin I (0.000-0.034) ng/mL Total Protein (6.3-8.2) g/dL Albumin (3.5-5.0) g/dL Urine Color Colorless Urine Appearance Clear (Clear) Urine pH 6.5 (5.0-8.0) Ur Specific [place] 1.015 (1.001-1.035) Urine Protein Negative (Negative) Urine Glucose (UA) Negative (Negative) Urine Ketones Negative (Negative) Urine Blood Negative (Negative) Urine Nitrite Negative (Negative) Urine Bilirubin Negative (Negative) Urine Urobilinogen <2.0 (<2.0) mg/dL Ur Leukocyte Esterase Negative (Negative) Influenza Type A (PCR) Not Detected (Not Detectd) Influenza Type B (PCR) Not Detected (Not Detectd) RSV (PCR) Not Detected (Not Detectd) SARS-CoV-2 (PCR) Not Detected (Not Detectd) Disposition Clinical Impression: Near syncope, Hypertension Disposition: HOME SELF-CARE Condition: Stable Instructions (If sedation given, give patient instructions): Dizziness (ED) Additional Instructions: Please keep a blood pressure log. Check your blood pressure 3 times a day. I recommend echo of your heart and Holter monitoring if your symptoms persist. Return for any new or worsening symptoms Is patient prescribed a controlled substance at d/c from ED?: No Referrals: Ray Bangura DO [Primary Care Provider] - 1-2 days Time of Disposition: 14:00
[2023-07-23 14:27] VITALS: BP 177/98; PULSE 67
== END 2023-07-23 14:06 | disposition home or self-care (01) ==
LOC: EC 10:21
DX: I10 Essential (primary) hypertension (principal); R55 Syncope and collapse; F17.290 Nicotine dependence, other tobacco product, uncomplicated; Z20.822 Contact with and (suspected) exposure to COVID-19; Z79.899 Other long term (current) drug therapy; Z88.1 Allergy status to other antibiotic agents
CPT/HCPCS: 36415; 71046; 80053; 81003; 84484; 85025; 85610; 87636; 93005; 96360; 99284

== ENCOUNTER → 2023-07-28 | Outpatient (CLI) | payer BC ==
--- NOTE | 2023-07-29 09:00 | MM ---
Reason for Exam: Screening (asymptomatic). Last mammogram was performed 2 year(s) and 7 month(s) ago. Patient History: Menarche at age 10. First Full-Term at age 41. Late child-bearing (after 30). Postmenopausal. 2003, Bilateral Reduction. Risk Values: Justine 5 year model risk: 1.9%. NCI Lifetime model risk: 11.7%. Prior Study Comparison: 01/19/2016 Bilateral Screening Mammogram, [facility]. 04/08/2018 Bilateral Screening Mammogram, [facility]. 12/27/2020 Bilateral Screening Mammogram, [facility]. Tissue Density: The breast tissue is heterogeneously dense. This may lower the sensitivity of mammography. Findings: Analyzed By CAD. There is no suspicious group of microcalcifications or new suspicious mass in either breast. Overall Assessment: Benign, BI-RAD 2 Management: Screening Mammogram of both breasts in 1 year. . Patient should continue monthly self-breast exams. A clinical breast exam by your physician is recommended on an annual basis. This exam should not preclude additional follow-up of suspicious palpable abnormalities. Note on Justine scores and lifetime risk: 1. A Justine score greater than 3% is considered moderate risk. If this is the case, consider specialist referral to assess eligibility for a risk reducing agent. 2. If overall lifetime risk for the development of breast cancer is 20% or higher, the patient may qualify for future screening with alternating mammogram and breast MRI. Electronically signed and approved by: Arie Estes M.D. Radiologis
== END | disposition home or self-care (01) ==
LOC: RADMAMWWP 12:58
PROVIDERS: ATTEND Family Medicine
DX: Z12.31 Encounter for screening mammogram for malignant neoplasm of breast (principal); Z78.0 Asymptomatic menopausal state
CPT/HCPCS: 77067

== ENCOUNTER 2023-08-04 05:40 | Observation (INO) | payer BC ==
[2023-08-04 07:05] LABS: Basophils % (A) 0 %; Eosinophils # (A) 0.2 k/uL (0-0.7); Eosinophils % (A) 2 %; HCT 43.4 % (34.0-46.0); HGB 14.3 gm/dL (11.4-16.0); Lymphocytes # (A) 1.8 k/uL (1.0-4.8); Lymphocytes % (A) 23 %; MCH 30.2 pg (25.0-35.0); MCHC 32.9 g/dL (31.0-37.0); MCV 91.9 fL (80.0-100.0); Mean Platelet Volume 8.9; Monocytes # (A) 0.4 k/uL (0-1.0); Monocytes % (A) 5 %; Neutrophils # (A) 5.4 k/uL (1.3-7.7); Neutrophils % (A) 69 %; Platelet Count 246 k/uL (150-450); RBC 4.73 m/uL (3.80-5.40); RDW 13.1 % (11.5-15.5); WBC 7.9 k/uL (3.8-10.6)
[2023-08-04 07:07] LABS: Appearance,Urine Clear (Clear); Bilirubin,Urine Negative (Negative); Blood,Urine Negative (Negative); Color,Urine Colorless; Glucose,Urine (UA) Negative (Negative); Ketones,Urine Negative (Negative); Leukocyte Esterase,Urine Negative (Negative); Nitrite,Urine Negative (Negative); PH, Urine 6.5 (5.0-8.0); Protein,Urine Negative (Negative); Specific Gravity,Urine 1.001 (1.001-1.035); Urobilinogen,Urine <2.0 mg/dL (<2.0)
--- NOTE | 2023-08-04 07:08 | ED ---
General Adult HPI - General Chief complaint: Recheck/Abnormal Lab/Rx Stated complaint: Hypertension, Light headed, Weakness Time Seen by Provider: 08/04/23 06:00 Source: patient, family, RN notes reviewed Mode of arrival: wheelchair Limitations: no limitations - History of Present Illness Initial comments: 57-year-old female presents emergency Department chief complaint hypertension, near syncope, chest pressure. Patient states that she's been having worsening ongoing symptoms. Patient states that she's been seen several times they've advise her that she needs to follow-up with cardiology and they're pending carotid ultrasound because they recently found conclusion on some imaging. Patient states that she feels very weak, slow moving, feels like she has no energy after this insulin this morning. States her blood pressure was significantly elevated even though should not do for her medication. patient states that she did take her blood pressure medication earlier this morning because of this event - Related Data Home Medications Medication Instructions Recorded Confirmed Losartan [Cozaar] 25 mg PO DAILY 07/23/23 07/23/23 Allergies Allergy/AdvReac Type Severity Reaction Status Date / Time azithromycin Allergy Rapid Verified 08/04/23 05:49 [From Zithromax Z-Adal] Heart Rate Review of Systems ROS Statement: Those systems with pertinent positive or pertinent negative responses have been documented in the HPI. ROS Other: All systems not noted in ROS Statement are negative. Past Medical History Past Medical History: Hypertension Additional Past Medical History / Comment(s): HEART MURMUR SINCE CHILD. GALLBLADDER DISORDER. RINGING IN BILAT EARS History of Any Multi-Drug Resistant Organisms: None Reported Past Surgical History: Appendectomy, Breast Surgery, Tonsillectomy, Tubal Ligation Additional Past Surgical History / Comment(s): BREAST REDUCTION, COLONOSCOPY, RECTAL SURGERY AFTER SON BORN Past Anesthesia/Blood Transfusion Reactions: Motion Sickness Past Psychological History: Depression Smoking Status: Former smoker, Vaper Past Alcohol Use History: None Reported Past Drug Use History: None Reported - Past Family History Mother Family Medical History: Cancer General Exam Limitations: no limitations General appearance: alert, in no apparent distress Head exam: Present: atraumatic, normocephalic, normal inspection Eye exam: Present: normal appearance, PERRL, EOMI. Absent: scleral icterus, conjunctival injection, periorbital swelling ENT exam: Present: normal exam, normal oropharynx, mucous membranes moist Neck exam: Present: normal inspection, full ROM. Absent: tenderness, men ingismus, lymphadenopathy Respiratory exam: Present: normal lung sounds bilaterally. Absent: respiratory distress, wheezes, rales, rhonchi, stridor Cardiovascular Exam: Present: regular rate, normal rhythm, normal heart sounds. Absent: systolic murmur, diastolic murmur, rubs, gallop, clicks GI/Abdominal exam: Present: soft, normal bowel sounds. Absent: distended, tenderness, guarding, rebound, rigid Neurological exam: Present: alert, oriented X3, reflexes normal. Absent: motor sensory deficit Skin exam: Present: warm, dry, intact, normal color. Absent: rash Course Vital Signs 08/04/23 08/04/23 05:47 06:25 Temperature 98.4 F Pulse Rate 72 Respiratory 18 Rate Blood Pressure 196/115 153/66 O2 Sat by Pulse 97 Oximetry EKG Findings - EKG Comments: EKG Findings:: EKG performed at 6:41-sized bradycardia rate of 51. pr 159, QRS 94 QT/QTC 390 /369 - EKG Results: EKG: interpreted by SUMAN Medical Decision Making - Medical Decision Making Was pt. sent in by a medical professional or institution (, PA, MOLECULAR BIOLOGY DIRECTOR, urgent care, hospital, or retirement...) When possible be specific @ -No Did you speak to anyone other than the patient for history (EMS, parent, family, police, friend...)? What history was obtained from this source @ -No Did you review nursing and triage notes (agree or disagree)? Why? @ -I reviewed and agree with nursing and triage notes Were old charts reviewed (outside hosp., previous admission, EMS record, old EKG, old radiological studies, urgent care reports/EKG's, retirement records)? Report findings @ -Reviewed prior laboratory studies, imaging Differential Diagnosis (chest pain, altered mental status, abdominal pain women, abdominal pain men, vaginal bleeding, weakness, fever, dyspnea, syncope, headache, dizziness, GI bleed, back pain, seizure, CVA, palpatations, mental health, musculoskeletal)? @ -Differential Syncope: Valvular disease, hypertrophic cardiomyopathy, pulmonary embolism, tamponade, tachycardia, bradycardia, TN, hypovolemia, hemorrhage, dissection, anemia, intracranial hemorrhage, seizure, hypoglycemia, carbon monoxide poisoning, this is not meant to be an all-inclusive list.le EKG interpreted by me (3pts min.). @ -As above X-rays interpreted by me (1pt min.). @ -Chest x-ray shows no acute process CT interpreted by me (1pt min.). @ -None done U/S interpreted by me (1pt. min.). @ -None done What testing was considered but not performed or refused? (CT, X-rays, U/S, labs)? Why? @ -None What meds were considered but not given or refused? Why? @ -None Did you discuss the management of the patient with other professionals (professionals i.e. Dr., PA, MOLECULAR BIOLOGY DIRECTOR, lab, RT, psych nurse, social director, virtual assistant for advertisers, teacher, giving officer, protective services case worker)? Give summary @ -No Was smoking cessation discussed for >3mins.? @ -No Was critical care preformed (if so, how long)? @ -No Were there social determinants of health that impacted care today? How? (Homelessness, low income, unemployed, alcoholism, drug addiction, transportation, low edu. Level, literacy, decrease access to med. care, halfway, rehab)? @ -No Was there de-escalation of care discussed even if they declined (Discuss DNR or withdrawal of care, Hospice)? DNR status @ -No What co-morbidities impacted this encounter? (DM, HTN, Smoking, COPD, CAD, Cancer, CVA, ARF, Chemo, Hep., AIDS, mental health diagnosis, sleep apnea, morbid obesity)? @ -Hypertension Was patient admitted / discharged? Hospital course, mention meds given and route, prescriptions, significant lab abnormalities, going to OR and other pertinent info. @ -Admitted patient's had several ER visits for similar complaints worsening symptoms of near syncope, syncopal episodes patient is having worsening hypertension with recent medication adjustments. Patient is scheduled for carotid ultrasound as they did notice desiccation x-ray in her neck and which there concern may be causing her symptoms. 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 @ -No Drug Therapy requiring intensive monitoring for toxicity (Heparin, Nitro, Insulin, Cardizem)? @ -No Were any procedures done? @ -No Diagnosis/symptom? @ -Near-syncope, weakness, chest pain, hypertension Acute, or Chronic, or Acute on Chronic? @ -Acute Uncomplicated (without systemic symptoms) or Complicated (systemic symptoms)? @ -complicated Side effects of treatment? @ -No Exacerbation, Progression, or Severe Exacerbation? @ -No Poses a threat to life or bodily function? How? (Chest pain, [place], TN, pneumonia, PE, COPD, DKA, ARF, appy, cholecystitis, CVA, Diverticulitis, Homicidal, Suicidal, threat to staff... and all critical care pts) @ -[Yes patient may have underlying acs - Lab Data Result diagrams: 08/04/23 06:50 08/04/23 06:50 Lab Results 08/04/23 08/04/23 08/04/23 Range/Units 06:50 06:50 06:50 WBC 7.9 (3.8-10.6) k/uL RBC 4.73 (3.80-5.40) m/uL Hgb 14.3 (11.4-16.0) gm/dL Hct 43.4 (34.0-46.0) % MCV 91.9 (80.0-100.0) fL MCH 30.2 (25.0-35.0) pg MCHC 32.9 (31.0-37.0) g/dL RDW 13.1 (11.5-15.5) % Plt Count 246 (150-450) k/uL MPV 8.9 Neutrophils % 69 % Lymphocytes % 23 % Monocytes % 5 % Eosinophils % 2 % Basophils % 0 % Neutrophils # 5.4 (1.3-7.7) k/uL Lymphocytes # 1.8 (1.0-4.8) k/uL Monocytes # 0.4 (0-1.0) k/uL Eosinophils # 0.2 (0-0.7) k/uL Basophils # 0.0 (0-0.2) k/uL PT 11.0 (10.0-12.5) sec INR 1.0 (<1.2) APTT 24.0 (22.0-30.0) sec Sodium (137-145) mmol/L Potassium (3.5-5.1) mmol/L Chloride (98-107) mmol/L Carbon Dioxide (22-30) mmol/L Anion Gap mmol/L BUN (7-17) mg/dL Creatinine (0.52-1.04) mg/dL Est GFR (CKD-EPI)AfAm (>60 ml/min/1.73 sqM) Est GFR (CKD-EPI)NonAf (>60 ml/min/1.73 sqM) Glucose (74-99) mg/dL Calcium (8.4-10.2) mg/dL Magnesium (1.6-2.3) mg/dL Total Bilirubin (0.2-1.3) mg/dL AST (14-36) U/L ALT (4-34) U/L Alkaline Phosphatase (38-126) U/L Troponin I (0.000-0.034) ng/mL Total Protein (6.3-8.2) g/dL Albumin (3.5-5.0) g/dL Urine Color Colorless Urine Appearance Clear (Clear) Urine pH 6.5 (5.0-8.0) Ur Specific [place] 1.001 (1.001-1.035) Urine Protein Negative (Negative) Urine Glucose (UA) Negative (Negative) Urine Ketones Negative (Negative) Urine Blood Negative (Negative) Urine Nitrite Negative (Negative) Urine Bilirubin Negative (Negative) Urine Urobilinogen <2.0 (<2.0) mg/dL Ur Leukocyte Esterase Negative (Negative) 08/04/23 08/04/23 Range/Units 06:50 06:50 WBC (3.8-10.6) k/uL RBC (3.80-5.40) m/uL Hgb (11.4-16.0) gm/dL Hct (34.0-46.0) % MCV (80.0-100.0) fL MCH (25.0-35.0) pg MCHC (31.0-37.0) g/dL RDW (11.5-15.5) % Plt Count (150-450) k/uL MPV Neutrophils % % Lymphocytes % % Monocytes % % Eosinophils % % Basophils % % Neutrophils # (1.3-7.7) k/uL Lymphocytes # (1.0-4.8) k/uL Monocytes # (0-1.0) k/uL Eosinophils # (0-0.7) k/uL Basophils # (0-0.2) k/uL PT (10.0-12.5) sec INR (<1.2) APTT (22.0-30.0) sec Sodium 143 (137-145) mmol/L Potassium 3.8 (3.5-5.1) mmol/L Chloride 107 (98-107) mmol/L Carbon Dioxide 25 (22-30) mmol/L Anion Gap 11 mmol/L BUN 19 H (7-17) mg/dL Creatinine 0.57 (0.52-1.04) mg/dL Est GFR (CKD-EPI)AfAm >90 (>60 ml/min/1.73 sqM) Est GFR (CKD-EPI)NonAf >90 (>60 ml/min/1.73 sqM) Glucose 103 H (74-99) mg/dL Calcium 9.3 (8.4-10.2) mg/dL Magnesium 2.2 (1.6-2.3) mg/dL Total Bilirubin 0.8 (0.2-1.3) mg/dL AST 25 (14-36) U/L ALT 30 (4-34) U/L Alkaline Phosphatase 87 (38-126) U/L Troponin I <0.012 (0.000-0.034) ng/mL Total Protein 6.7 (6.3-8.2) g/dL Albumin 4.3 (3.5-5.0) g/dL Urine Color Urine Appearance (Clear) Urine pH (5.0-8.0) Ur Specific [place] (1.001-1.035) Urine Protein (Negative) Urine Glucose (UA) (Negative) Urine Ketones (Negative) Urine Blood (Negative) Urine Nitrite (Negative) Urine Bilirubin (Negative) Urine Urobilinogen (<2.0) mg/dL Ur Leukocyte Esterase (Negative) Disposition Clinical Impression: Near syncope, Hypertension, Chest pain, Weakness Disposition: ADMITTED IP TO THIS HOSP Condition: Fair Referrals: Ray Bangura DO [Primary Care Provider] - 1-2 days Time of Disposition: 08:17
[2023-08-04 07:24] LABS: ALT 30 U/L (4-34); AST 25 U/L (14-36); African American GFR (CKD) >90 (>60 ml/min/1.73 sqM); Albumin 4.3 g/dL (3.5-5.0); Alkaline Phosphatase 87 U/L (38-126); Anion Gap 11 mmol/L; Blood Urea Nitrogen 19 mg/dL (7-17); Calcium 9.3 mg/dL (8.4-10.2); Carbon Dioxide 25 mmol/L (22-30); Chloride 107 mmol/L (98-107); Glucose 103 mg/dL (74-99); Magnesium 2.2 mg/dL (1.6-2.3); Non-African American GFR(CKD) >90 (>60 ml/min/1.73 sqM); Potassium 3.8 mmol/L (3.5-5.1); Sodium 143 mmol/L (137-145); Total Bilirubin 0.8 mg/dL (0.2-1.3); Total Protein 6.7 g/dL (6.3-8.2)
--- NOTE | 2023-08-04 07:35 | XR ---
EXAMINATION TYPE: XR chest 2V DATE OF EXAM: 08/04/2023 COMPARISON: 07/23/2023 HISTORY: Shortness of breath TECHNIQUE: Frontal and lateral views of the chest are obtained. FINDINGS: Scattered senescent parenchymal changes noted. Hyperinflation compatible with COPD. No evidence for infiltrate. No evidence for atelectasis. Heart size is stable. Mediastinal structures are stable and grossly unremarkable. No evidence for hilar prominence. Degenerative changes dorsal spine. IMPRESSION: 1. No evidence for acute pulmonary disease.
[2023-08-04] MEDS ORDERED: NITROGLYCERIN SL TABS 0.4 MG TAB SUBLINGUAL PRN (08:32)
[2023-08-04] MEDS ORDERED: ASPIRIN 81 MG PO STA (08:32)
--- NOTE | 2023-08-04 09:41 | US ---
EXAMINATION TYPE: US carotid duplex BILAT DATE OF EXAM: 08/04/2023 COMPARISON: NONE CLINICAL INDICATION: Female, 57 years old with history of syncope; episodes of syncope TECHNIQUE: Carotid duplex ultrasound examination. Indirect Doppler criteria was utilized. FINDINGS: EXAM MEASUREMENTS: RIGHT: Peak Systolic Velocity (PSV) cm/sec ----- Right CCA: 57.5 ----- Right ICA: 102.9 ----- Right ECA: 96.6 ICA/CCA ratio: 1.8 RIGHT: End Diastole cm/sec ----- Right CCA: 15.6 ----- Right ICA: 27.5 ----- Right ECA: 7.4 LEFT: Peak Systolic Velocity (PSV) cm/sec ----- Left CCA: 55.4 ----- Left ICA: 109.6 ----- Left ECA: 103.4 ICA/CCA ratio: 2.0 LEFT: End Diastole cm/sec ----- Left CCA: 17.0 ----- Left ICA: 31.2 ----- Left ECA: 6.1 VERTEBRALS (direction of flow): Right Vertebral: Antegrade Left Vertebral: Antegrade Rhythm: Normal CHECK GRADER NOTES: Mild atherosclerotic IMPRESSION: Less than 50% stenosis of the bilateral carotid bifurcations. Criteria for Assigning % of Stenosis / Diameter reduction (Estimation based on the indirect measurements of the internal carotid artery velocities (ICA PSV). 1. Normal (no stenosis)=ICA PSV < 125 cm/s: ratio < 2.0: ICA EDV<40 cm/s. 2. Less than 50% stenosis=ICA PSV < 125 cm/s: ratio < 2.0: ICA EDV<40 cm/s. 3. 50 to 69% stenosis=ICA PSV of 125 to 230 cm/s: ration 2.0 ? 4.0: ICA EDV 40-100 cm/s. 4. Greater than 70% stenosis to near occlusion= ICA PSV > 230 cm/s: ratio > 4.0: ICA EDV > 100 cm/s. 5. Near occlusion= ICA PSV velocities may be low or undetectable: variable ratio and ICA EDV. 6. Total occlusion=unable to detect flow.
[2023-08-04] MEDS ORDERED: NALOXONE 0.4 MG/ML 1 ML VIAL IV PRN (09:44)
[2023-08-04] MEDS ORDERED: ACETAMINOPHEN TAB 325 MG TAB PO PRN (09:44)
[2023-08-04] MEDS ORDERED: CALCIUM CARBONATE 500 MG CHEWABLE PO PRN (09:44)
[2023-08-04] MEDS ORDERED: ONDANSETRON 4 MG/2 ML VIAL IVP PRN (09:44)
[2023-08-04] MEDS ORDERED: LOSARTAN 50 MG TAB PO SCH (09:45)
[2023-08-04] MEDS ORDERED: hydrALAZINE HCL 20 MG/ML 1 ML VIAL IVP PRN (09:45)
[2023-08-04] MEDS: SODIUM CHLORIDE 0.9% 1,000 ML IV SCH (10:44)
[2023-08-04] MEDS ORDERED: LOSARTAN 50 MG TAB PO STA (11:10)
[2023-08-04] MEDS ORDERED: amLODIPine 5 MG TAB PO SCH (11:15)
--- NOTE | 2023-08-04 12:55 | P.CRDCN ---
History of Present Illness History of present illness: HISTORY OF PRESENT ILLNESS: This is a 57-year-old female with a past medical history significant for congenital heart disease with surgery at [facility], hypertension, and nicotine dependence. Patient follows in the office with Dr. Mcgregor but has not been seen in the office since July 2021. We have been asked to see the patient in consultation for syncope and hypertension. Patient examined at the bedside. Patient presented to the hospital with chief complaint of uncontrolled blood pressure. She also port's feeling dizzy and having a near-syncopal episode at home. She currently denies chest pain or pressure. She denies shortness of breath. Blood pressure on admission 196/115. * EKG reveals sinus bradycardia with no signs of acute ischemia * Chest xray negative for acute process * Carotid Doppler: Less than 50% stenosis bilaterally * Laboratory data: Troponin negative 2 * Current home cardiac medications include losartan 50 mg daily and aspirin 81 mg daily REVIEW OF SYSTEMS: At the time of my exam: CONSTITUTIONAL: Denies fever or chills. HEENT: Denies blurred vision, vision changes, or eye pain. Denies hemoptysis CARDIOVASCULAR: Denies chest pain. Denies orthopnea. Denies PND. Denies palpitations RESPIRATORY: Denies shortness of breath. GASTROINTESTINAL: Denies abdominal pain. Denies nausea or vomiting. HEMATOLOGIC: Denies bleeding disorders. GENITOURINARY: Denies any blood in urine. SKIN: Denies pruitis. Denies rash. PHYSICAL EXAM: VITAL SIGNS: Reviewed. GENERAL: Well-developed in no acute distress. HEENT: Head is normocephalic. Pupils are equal, round. Sclerae anicteric. Mucous membranes of the mouth are moist. Neck supple. No JVD or thyromegaly LUNGS: Respirations even and unlabored. Lungs essentially clear to auscultation bilaterally. HEART: Regular rate and rhythm. S1 and S2 heard. ABDOMEN: Soft. Nondistended. Nontender. EXTREMITIES: Normal range of motion. No clubbing or cyanosis. Peripheral pulses intact. No lower extremity edema NEUROLOGIC: Awake and alert. Oriented x 3. ASSESSMENT: Presyncope Hypertensive urgency Nicotine dependence History of congenital heart disease with surgery at [facility] PLAN: Obtain 2-D echo to assess cardiac structure and function Obtain renal artery Doppler to rule out renal artery stenosis Secondary hypertensive labs ordered Increase losartan to 100 mg daily Continue to monitor blood pressure Discontinue PRN antihypertensive medications as this makes it difficult to assess optimal oral BP medication regimen moving forward Will add amlodipine if patient's blood pressure remains elevated this afternoon Further recommendations pending patient's course Nurse practitioner note has been reviewed by physician. Signing provider agrees with the documented findings, assessment, and plan of care. Past Medical History Past Medical History: Hypertension Additional Past Medical History / Comment(s): HEART MURMUR SINCE CHILD. GALLBLADDER DISORDER. RINGING IN BILAT EARS History of Any Multi-Drug Resistant Organisms: None Reported Past Surgical History: Appendectomy, Breast Surgery, Tonsillectomy, Tubal Ligation Additional Past Surgical History / Comment(s): BREAST REDUCTION, COLONOSCOPY, RECTAL SURGERY AFTER SON BORN Past Anesthesia/Blood Transfusion Reactions: Motion Sickness Past Psychological History: Depression Smoking Status: Former smoker, Vaper Past Alcohol Use History: None Reported Past Drug Use History: None Reported - Past Family History Mother Family Medical History: Cancer Medications and Allergies Home Medications Medication Instructions Recorded Confirmed Type Aspirin 81 mg PO DAILY 08/04/23 08/04/23 History Losartan [Cozaar] 50 mg PO DAILY 08/04/23 08/04/23 History Allergies Allergy/AdvReac Type Severity Reaction Status Date / Time azithromycin Allergy Rapid Verified 08/04/23 08:49 [From Zithromax Z-Adal] Heart Rate Physical Exam Vitals: Vital Signs Temp Pulse Resp BP Pulse Ox 08/04/23 11:26 57 L 18 151/73 96 08/04/23 09:41 70 18 155/75 97 08/04/23 08:28 55 L 18 132/65 96 08/04/23 07:15 60 18 169/91 96 08/04/23 06:25 153/66 08/04/23 05:47 98.4 F 72 18 196/115 97 Intake and Output 08/03/23 08/04/23 08/04/23 22:59 06:59 14:59 Other: Weight 86.183 kg Results 08/04/23 06:50 08/04/23 06:50 Cardiac Enzymes 08/04/23 08/04/23 08/04/23 Range/Units 06:50 06:50 10:00 AST 25 (14-36) U/L Troponin I <0.012 <0.012 (0.000-0.034) ng/mL Coagulation 08/04/23 Range/Units 06:50 PT 11.0 (10.0-12.5) sec APTT 24.0 (22.0-30.0) sec CBC 08/04/23 Range/Units 06:50 WBC 7.9 (3.8-10.6) k/uL RBC 4.73 (3.80-5.40) m/uL Hgb 14.3 (11.4-16.0) gm/dL Hct 43.4 (34.0-46.0) % Plt Count 246 (150-450) k/uL Comprehensive Metabolic Panel 08/04/23 Range/Units 06:50 Sodium 143 (137-145) mmol/L Potassium 3.8 (3.5-5.1) mmol/L Chloride 107 (98-107) mmol/L Carbon Dioxide 25 (22-30) mmol/L BUN 19 H (7-17) mg/dL Creatinine 0.57 (0.52-1.04) mg/dL Glucose 103 H (74-99) mg/dL Calcium 9.3 (8.4-10.2) mg/dL AST 25 (14-36) U/L ALT 30 (4-34) U/L Alkaline Phosphatase 87 (38-126) U/L Total Protein 6.7 (6.3-8.2) g/dL Albumin 4.3 (3.5-5.0) g/dL Current Medications Generic Name Dose Route Start Last Admin Trade Name Freq PRN Reason Stop Dose Admin Acetaminophen 650 mg 08/04/23 09:44 Acetaminophen Tab 325 Mg Tab PO Q6HR PRN Mild Pain or Fever > 100.5 Aspirin 325 mg 08/05/23 09:00 Aspirin 325 Mg Tab PO DAILY [facility] Calcium Carbonate/Glycine 1,000 mg 08/04/23 09:44 Calcium Carbonate 500 Mg Chewable PO Q4HR PRN Dyspepsia Hydralazine HCl 10 mg 08/04/23 09:45 Hydralazine Hcl 20 Mg/Ml 1 Ml Vial IVP Q6HR PRN Blood Pressure - High Sodium Chloride 1,000 mls @ 20 mls/hr 08/04/23 09:45 08/04/23 10:44 Saline 0.9% IV Not Given .Q24H [facility] Losartan Potassium 100 mg 08/05/23 09:00 Losartan 50 Mg Tab PO DAILY [facility] Naloxone HCl 0.2 mg 08/04/23 09:44 Naloxone 0.4 Mg/Ml 1 Ml Vial IV Q2M PRN Opioid Reversal Nitroglycerin 0.4 mg 08/04/23 08:32 Nitroglycerin Sl Tabs 0.4 Mg Tab SUBLINGUAL Q5M PRN Chest Pain Ondansetron HCl 4 mg 08/04/23 09:44 Ondansetron 4 Mg/2 Ml Vial IVP Q8HR PRN Nausea And Vomiting Intake and Output 08/03/23 08/04/23 08/04/23 22:59 06:59 14:59 Other: Weight 86.183 kg 08/04/23 06:50 08/04/23 06:50
--- NOTE | 2023-08-04 13:22 | P.HPIM ---
History of Present Illness H&P Date: 08/04/23 Chief Complaint: Presyncope * 57-year-old patient with past medical history significant for hypertension, history of arthritis, depression, surgical history of appendicectomy and tonsillectomy, tobacco use history presents to the emergency department with complains of near-syncopal episode and chest pain. Patient has been having symptoms for several days however patient started to have worsening symptoms and decided to come to emergency for further evaluation patient also complained of associated weakness and lack of energy. Patient was noted to have elevated blood pressure. * Patient does have history of hypertension and has been on Cozaar at home * Workup in ER included an EKG which showed sinus rhythm no ST segment changes * Initial troponin obtained was within normal limits, serum chemistry showed normal sodium, potassium, carbon dioxide B on and creatinine magnesium and liver profile within normal limits * Blood pressure the time of admission was 1 96 x 115 * Patient admitted to medical floor with consultation for cardiology echocardiogram and carotid ultrasound ordered REVIEW OF SYSTEMS: Chest pain, fatigue, syncopal episode recurrent CONSTITUTIONAL: No fever, no malaise, no fatigue. HEENT: No recent visual problems or hearing problems. Denied any sore throat. CARDIOVASCULAR: No chest pain, orthopnea, PND, no palpitations, no syncope. PULMONARY: No shortness of breath, no cough, no hemoptysis. GASTROINTESTINAL: No diarrhea, no nausea, no vomiting, no abdominal pain. NEUROLOGICAL: No headaches, no weakness, no numbness. HEMATOLOGICAL: Denies any bleeding or petechiae. GENITOURINARY: Denies any burning micturition, frequency, or urgency. MUSCULOSKELETAL/RHEUMATOLOGICAL: Denies any joint pain, swelling, or any muscle pain. ENDOCRINE: Denies any polyuria or polydipsia. PHYSICAL EXAMINATION: GENERAL: The patient is alert and oriented x3, not in any acute distress. Well developed, well nourished. HEENT: Pupils are round and equally reacting to light. EOMI. No scleral icterus. CARDIOVASCULAR: S1 and S2 present. No murmurs, rubs, or gallops. PULMONARY: Chest is clear to auscultation, no wheezing or crackles. ABDOMEN: Soft, nontender, nondistended, normoactive bowel sounds. No palpable organomegaly. MUSCULOSKELETAL: No joint swelling or deformity. EXTREMITIES: No cyanosis, clubbing, or pedal edema. NEUROLOGICAL: Gross neurological examination did not reveal any focal deficits. SKIN: No rashes. Past Medical History Past Medical History: Hypertension Additional Past Medical History / Comment(s): HEART MURMUR SINCE CHILD. GALLBLADDER DISORDER. RINGING IN BILAT EARS History of Any Multi-Drug Resistant Organisms: None Reported Past Surgical History: Appendectomy, Breast Surgery, Tonsillectomy, Tubal Ligation Additional Past Surgical History / Comment(s): BREAST REDUCTION, COLONOSCOPY, RECTAL SURGERY AFTER SON BORN Past Anesthesia/Blood Transfusion Reactions: Motion Sickness Past Psychological History: Depression Smoking Status: Former smoker, Vaper Past Alcohol Use History: None Reported Past Drug Use History: None Reported - Past Family History Mother Family Medical History: Cancer Medications and Allergies Home Medications Medication Instructions Recorded Confirmed Type Aspirin 81 mg PO DAILY 08/04/23 08/04/23 History Losartan [Cozaar] 50 mg PO DAILY 08/04/23 08/04/23 History Allergies Allergy/AdvReac Type Severity Reaction Status Date / Time azithromycin Allergy Rapid Verified 08/04/23 08:49 [From Zithromax Z-Adal] Heart Rate Physical Exam Vitals: Vital Signs Temp Pulse Resp BP Pulse Ox 08/04/23 09:41 70 18 155/75 97 08/04/23 08:28 55 L 18 132/65 96 08/04/23 07:15 60 18 169/91 96 08/04/23 06:25 153/66 08/04/23 05:47 98.4 F 72 18 196/115 97 Intake and Output 08/03/23 08/04/23 08/04/23 22:59 06:59 14:59 Other: Weight 86.183 kg Results CBC & Chem 7: 08/04/23 06:50 08/04/23 06:50 Labs: Abnormal Lab Results - Last 24 Hours (Table) 08/04/23 Range/Units 06:50 BUN 19 H (7-17) mg/dL Glucose 103 H (74-99) mg/dL Assessment and Plan Assessment: Assessment and plan * Accelerated hypertension * Syncopal episode * Chest pain rule out ACS * History of congenital heart disease with surgery in childhood * In regards to elevated blood pressure, carotid ultrasound, echocardiogram ordered. Cardiology consulted serial troponins ordered. Continue patient on Cozaar, when necessary IV hydralazine ordered * Renal artery Doppler ultrasound ordered to rule out renal artery stenosis * In regards to chest pain continue patient on serial troponins, as needed EKG for chest pain, sublingual nitroglycerin * CODE STATUS is full code Time with Patient: Greater than 30
--- NOTE | 2023-08-05 08:29 | P.PN ---
Subjective HISTORY OF PRESENT ILLNESS: This is a 57-year-old female with a past medical history significant for congenital heart disease with surgery at [facility], hypertension, and nicotine dependence. Patient follows in the office with Dr. Mcgregor but has not been seen in the office since July 2021. We have been asked to see the patient in consultation for syncope and hypertension. Patient examined at the bedside. Patient presented to the hospital with chief complaint of uncontrolled blood pressure. She also port's feeling dizzy and having a near-syncopal episode at home. She currently denies chest pain or pressure. She denies shortness of breath. Blood pressure on admission 196/115. * EKG reveals sinus bradycardia with no signs of acute ischemia * Chest xray negative for acute process * Carotid Doppler: Less than 50% stenosis bilaterally * Laboratory data: Troponin negative 2 * Current home cardiac medications include losartan 50 mg daily and aspirin 81 mg daily 08/05/2021 Patient examined this morning at the bedside. Patient currently denies any chest pain or pressure. She denies any shortness of breath. Patient's blood pressures have improved with a systolic between [id number]. She is bradycardic with a heart rate in the 50s. PHYSICAL EXAM: VITAL SIGNS: Reviewed. GENERAL: Well-developed in no acute distress. HEENT: Head is normocephalic. Pupils are equal, round. Sclerae anicteric. Mucous membranes of the mouth are moist. Neck supple. No JVD or thyromegaly LUNGS: Respirations even and unlabored. Lungs essentially clear to auscultation bilaterally. HEART: Regular rate and rhythm. S1 and S2 heard. ABDOMEN: Soft. Nondistended. Nontender. EXTREMITIES: Normal range of motion. No clubbing or cyanosis. Peripheral pulses intact. No lower extremity edema NEUROLOGIC: Awake and alert. Oriented x 3. ASSESSMENT: Presyncope Hypertensive urgency Nicotine dependence History of congenital heart disease with surgery at [facility] PLAN: 2-D echo ordered. Await results. Renal artery duplex ordered to rule out renal artery stenosis. Await results Continue current cardiac medications Add amlodipine 5 mg daily Continue to monitor blood pressure Patient may follow up in the office with Dr. Mcgregor to follow up on secondary hypertensive labs Anticipate discharge home this afternoon Nurse practitioner note has been reviewed by physician. Signing provider agrees with the documented findings, assessment, and plan of care. Objective - Vital Signs Vital signs: Vital Signs Temp 97.8 F 08/05/23 07:00 Pulse 52 L 08/05/23 07:00 Resp 12 08/05/23 07:00 BP 146/81 08/05/23 07:00 Pulse Ox 97 08/05/23 07:00 FiO2 Intake & Output 08/04/23 08/05/23 08/05/23 18:59 06:59 18:59 Weight 86.183 kg Other: Voiding Method Toilet # Voids 1 - Labs CBC & Chem 7: 08/04/23 06:50 08/04/23 06:50
[2023-08-05] MEDS: LOSARTAN 50 MG TAB PO SCH (08:48)
[2023-08-05] MEDS: ASPIRIN 81 MG PO SCH (08:48)
[2023-08-05] MEDS ORDERED: ASPIRIN 325 MG TAB PO SCH (09:00)
[2023-08-05] MEDS ORDERED: amLODIPine 5 MG TAB PO SCH (09:00)
[2023-08-05 09:04] LABS: Basophils # (A) 0.05 X 10*3/uL (0.00-0.10); Basophils % (A) 0.7 %; Eosinophils # (A) 0.24 X 10*3/uL (0.04-0.35); Eosinophils % (A) 3.4 %; HCT 42.1 % (37.2-46.3); Lymphocytes # (A) 2.48 X 10*3/uL (0.90-5.00); Lymphocytes % (A) 34.6 %; MCH 29.9 pg (27.0-32.0); MCHC 33.3 g/dL (32.0-37.0); MCV 89.8 FL (80.0-97.0); Mean Platelet Volume 11.7 FL (9.5-12.2); Monocytes % (A) 5.6 %; NRBC Per 100 WBC 0 X 10*3/uL (0.00-0.01); Neutrophils # (A) 3.97 X 10*3/uL (1.80-7.70); Neutrophils % (A) 55.4 %; Platelet Count 298 X 10*3/uL (140-440); RBC 4.69 X 10*6/uL (4.10-5.20); RDW 13.2 % (11.5-14.5); WBC 7.16 X 10*3/uL (4.50-10.00)
--- NOTE | 2023-08-05 09:36 | US ---
EXAMINATION TYPE: US renal artery duplex complete DATE OF EXAM: 08/05/2023 COMPARISON: 06/28/2022. CLINICAL INDICATION: Female, 57 years old with history of Rule out renal artery stenosis; Hypertensio n x 17 years. MEASUREMENTS: RENAL SIZE: Rt Kidney: 10.7 x 5.4 x 4.7 Lt Kidney: 11.6 x 5.8 x 5.4 RESISTANCE INDEX Right: 0.77 Left: 0.83 RA/AO RATIO (< 3.5 ) Right: 1.9 Left: 2.3 RA VELOCITY ( < 180 cm/s) Right: 184.22 Left: 219.5 Proximal aorta appears ectatic measuring 2.7 cm. -Anechoic area seen lower pole left kidney: 1.9 x 1.0 x 0.9 cm. *Slightly elevated velocity right proximal renal artery= 184.2 cm/s. *Elevated velocity left proximal renal artery= 219.5 cm/s. IMPRESSION: Evidence of mild renal artery stenosis bilaterally.
[2023-08-05 09:38] LABS: BUN/Creat Ratio 17.71 Ratio (12.00-20.00); Blood Urea Nitrogen 12.4 mg/dL (9.0-27.0); Calcium 9.3 mg/dL (8.7-10.3); Carbon Dioxide 25.5 mmol/L (21.6-31.8); Chloride 107 mmol/L (96-109); Chol/HDL Ratio 3.46 Ratio; Glucose 107 mg/dL (70-110); LDL Cholesterol,Calculated 111.8 mg/dL (0.0-131.0); Sodium 143 mmol/L (135-145); VLDL Calculation 15.48 mg/dL (5.00-40.00)
[2023-08-05] MEDS ORDERED: LOSARTAN 50 MG TAB PO SCH (09:45)
--- NOTE | 2023-08-05 12:18 | P.PN ---
Subjective Progress Note Date: 08/05/23 * 57-year-old patient with past medical history significant for hypertension, history of arthritis, depression, surgical history of appendicectomy and tonsillectomy, tobacco use history presents to the emergency department with complains of near-syncopal episode and chest pain. Patient has been having symptoms for several days however patient started to have worsening symptoms and decided to come to emergency for further evaluation patient also complained of associated weakness and lack of energy. Patient was noted to have elevated blood pressure. * Patient does have history of hypertension and has been on Cozaar at home * Workup in ER included an EKG which showed sinus rhythm no ST segment changes * Initial troponin obtained was within normal limits, serum chemistry showed normal sodium, potassium, carbon dioxide B on and creatinine magnesium and liver profile within normal limits * Blood pressure the time of admission was 1 96 x 115 * Patient admitted to medical floor with consultation for cardiology echocardiogram and carotid ultrasound ordered * 08/05/2023: Patient seen and evaluated bedside, patient echocardiogram completed, carotid ultrasound negative for hemodynamically significant lisa nosis, seen by cardiology, blood pressure better controlled, renal duplex completed mild renal artery stenosis noted bilaterally. Urine studies pending 24-hour urine collection for catecholamines to be completed by tomorrow then patient will be discharged home REVIEW OF SYSTEMS: Chest pain, fatigue resolved, syncopal episode recurrent resolved CONSTITUTIONAL: No fever, no malaise, no fatigue. HEENT: No recent visual problems or hearing problems. Denied any sore throat. CARDIOVASCULAR: No chest pain, orthopnea, PND, no palpitations, no syncope. PULMONARY: No shortness of breath, no cough, no hemoptysis. GASTROINTESTINAL: No diarrhea, no nausea, no vomiting, no abdominal pain. NEUROLOGICAL: No headaches, no weakness, no numbness. HEMATOLOGICAL: Denies any bleeding or petechiae. GENITOURINARY: Denies any burning micturition, frequency, or urgency. MUSCULOSKELETAL/RHEUMATOLOGICAL: Denies any joint pain, swelling, or any muscle pain. ENDOCRINE: Denies any polyuria or polydipsia. PHYSICAL EXAMINATION: GENERAL: The patient is alert and oriented x3, not in any acute distress. Well developed, well nourished. HEENT: Pupils are round and equally reacting to light. EOMI. No scleral icterus. CARDIOVASCULAR: S1 and S2 present. No murmurs, rubs, or gallops. PULMONARY: Chest is clear to auscultation, no wheezing or crackles. ABDOMEN: Soft, nontender, nondistended, normoactive bowel sounds. No palpable organomegaly. MUSCULOSKELETAL: No joint swelling or deformity. EXTREMITIES: No cyanosis, clubbing, or pedal edema. NEUROLOGICAL: Gross neurological examination did not reveal any focal deficits. SKIN: No rashes. Objective - Vital Signs Vital signs: Vital Signs Temp 97.8 F 08/05/23 07:00 Pulse 52 L 08/05/23 07:00 Resp 12 08/05/23 07:00 BP 146/81 08/05/23 07:00 Pulse Ox 96 08/05/23 09:42 FiO2 Intake & Output 08/04/23 08/05/23 08/05/23 18:59 06:59 18:59 Intake Total 240 Balance 240 Weight 86.183 kg Intake: Oral 240 Other: Voiding Method Toilet # Voids 1 - Labs CBC & Chem 7: 08/05/23 05:46 08/05/23 05:46 Assessment and Plan Assessment: Assessment and plan * Accelerated hypertension * Presyncope * Chest pain ruled out ACS * History of congenital heart disease with surgery in childhood * Nicotine dependence * In regards to elevated blood pressure, carotid ultrasound negative for hemodynamically significant stenosis, echocardiogram ordered last negative. Continue Cozaar, does increase/continue amlodipine * Renal artery Doppler ultrasound shows mild renal artery stenosis * In regards to chest pain, likely secondary to hypertension, negative troponins * CODE STATUS is full code
[2023-08-05] MEDS: SODIUM CHLORIDE 0.9% 1,000 ML IV SCH (12:32)
--- NOTE | 2023-08-05 17:21 | CA ---
Transthoracic Echo Report Name: Aziza Botello Age: 57 Gender: F : 1965 Exam Date: 08/05/2023 13:23 Exam Location: [place] [facility] Ht (in): 62 Wt (lb): 190 Ordering Physician: Michael Mcintosh Attending/Referring Phys: [id number], Dayna [employer] Installer Negrita Pratt, WENDY Procedure CPT: Indications: Syncope Cardiac Hx: Technical Quality: Fair Contrast 1: Total Dose (mL): Contrast 2: Total Dose (mL): MEASUREMENTS (Male / Female) Normal Values 2D ECHO LV Diastolic Diameter PLAX 3.6 cm 4.2 - 5.9 / 3.9 - 5.3 cm LV Systolic Diameter PLAX 2.4 cm IVS Diastolic Thickness 1.3 cm 0.6 - 1.0 / 0.6 - 0.9 cm LVPW Diastolic Thickness 1.4 cm 0.6 - 1.0 / 0.6 - 0.9 cm LV Relative Wall Thickness 0.7 RV Internal Dim ED PLAX 2.7 cm LA Volume 53.1 cm??? 18 - 58 / 22 - 52 cm??? LA Volume Index 26.8 cm???/m??? 16 - 28 cm???/m??? M-MODE Aortic Root Diameter MM 2.3 cm LA Systolic Diameter MM 3.7 cm LA Ao Ratio MM 1.6 AV Cusp Separation MM 1.6 cm DOPPLER AV Peak Velocity 266.9 cm/s AV Peak Gradient 28.5 mmHg AV Mean Velocity 189.3 cm/s AV Mean Gradient 16.0 mmHg AV Velocity Time Integral 57.7 cm AI Peak Velocity 462.6 cm/s AI Peak Gradient 85.6 mmHg AI Pressure Half Time 453.6 ms LVOT Peak Velocity 187.6 cm/s LVOT Peak Gradient 14.1 mmHg LVOT Velocity Time Integral 41.6 cm MV Area PHT 3.7 cm??? Mitral E Point Velocity 114.9 cm/s Mitral A Point Velocity 98.4 cm/s Mitral E to A Ratio 1.2 MV Deceleration Time 207.4 ms MV E' Velocity 9.0 cm/s Mitral E to MV E' Ratio 12.7 TR Peak Velocity 282.6 cm/s TR Peak Gradient 31.9 mmHg Right Ventricular Systolic Press 36.9 mmHg FINDINGS Left Ventricle Moderately increased left ventricular wall thickness. Left ventricular cavity size normal. Normal left ventricular systolic function with no obvious regional wall motion abnormalities. Left ventricular ejection fraction is estimated at 55-60 %. Membranous ventricular septal defect. Right Ventricle Normal right ventricular size and function. Mild pulmonary hypertension. Right Atrium Normal right atrial size. Left Atrium Mildly increased left atrial volume. Interatrial septal aneurysm. Possible PFO. Mitral Valve Structurally normal mitral valve. Mitral valve thickened. Mild mitral annular calcification. Mild mitral regurgitation. Aortic Valve Aortic valve not well visualized. Aortic peak gradient of 29 mmHg and a mean gradient of 16 mmHg. Mild aortic regurgitation. Tricuspid Valve Structurally normal tricuspid valve. Mild tricuspid regurgitation. Pulmonic Valve Trace pulmonic regurgitation. Pericardium No pericardial effusion. Aorta Normal size aortic root and proximal ascending aorta. CONCLUSIONS Normal LV systolic function Mild aortic stenosis and regurgitation Abnormal color-flow across the interventricular septum could be due to membranous VSD Previewed by: Dr. Edwin Zafar MD (Electronically Signed) Final Date: 05 August 2023 17:20
[2023-08-06 07:58] VITALS: BP 148/83; PULSE 51; RESP 15; TEMP 97.8
[2023-08-06] MEDS: ASPIRIN 81 MG PO SCH (08:58)
[2023-08-06] MEDS: LOSARTAN 50 MG TAB PO SCH (08:58)
[2023-08-06] MEDS ORDERED: amLODIPine 10 MG TAB PO SCH (09:00)
[2023-08-06] MEDS: SODIUM CHLORIDE 0.9% 1,000 ML IV SCH (09:23)
--- NOTE | 2023-08-06 10:21 | P.PN ---
Subjective HISTORY OF PRESENT ILLNESS: This is a 57-year-old female with a past medical history significant for congenital heart disease with surgery at [facility], hypertension, and nicotine dependence. Patient follows in the office with Dr. Mcgregor but has not been seen in the office since July 2021. We have been asked to see the patient in consultation for syncope and hypertension. Patient examined at the bedside. Patient presented to the hospital with chief complaint of uncontrolled blood pressure. She also port's feeling dizzy and having a near-syncopal episode at home. She currently denies chest pain or pressure. She denies shortness of breath. Blood pressure on admission 196/115. * EKG reveals sinus bradycardia with no signs of acute ischemia * Chest xray negative for acute process * Carotid Doppler: Less than 50% stenosis bilaterally * Laboratory data: Troponin negative 2 * Current home cardiac medications include losartan 50 mg daily and aspirin 81 mg daily 08/05/2021 Patient examined this morning at the bedside. Patient currently denies any chest pain or pressure. She denies any shortness of breath. Patient's blood pressures have improved with a systolic between [id number]. She is bradycardic with a heart rate in the 50s. 08/06/2023 Patient examined this morning at the bedside. Patient denies chest pain or pressure. She denies shortness of breath. Blood pressure has improved with a systolic in the 140s. Echocardiogram completed revealing normal LV systolic function, mild aortic stenosis and regurgitation, abnormal color flow across intraventricular septum could be due to membranous VSD. Renal artery Doppler reveals mild stenosis. PHYSICAL EXAM: VITAL SIGNS: Reviewed. GENERAL: Well-developed in no acute distress. HEENT: Head is normocephalic. Pupils are equal, round. Sclerae anicteric. Mucous membranes of the mouth are moist. Neck supple. No JVD or thyromegaly LUNGS: Respirations even and unlabored. Lungs essentially clear to auscultation bilaterally. HEART: Regular rate and rhythm. S1 and S2 heard. ABDOMEN: Soft. Nondistended. Nontender. EXTREMITIES: Normal range of motion. No clubbing or cyanosis. Peripheral pulses intact. No lower extremity edema NEUROLOGIC: Awake and alert. Oriented x 3. ASSESSMENT: Presyncope Hypertensive urgency Nicotine dependence History of congenital heart disease with surgery due to "hole in heart" at [facility] PLAN: Continue current cardiac medications Increase amlodipine to 10 mg daily Patient instructed to monitor blood pressure on an outpatient basis Patient may be discharged home today from a cardiac standpoint We will sign off. Please reconsult if needed. Nurse practitioner note has been reviewed by physician. Signing provider agrees with the documented findings, assessment, and plan of care. Objective - Vital Signs Vital signs: Vital Signs Temp 97.8 F 08/06/23 07:15 Pulse 51 L 08/06/23 07:15 Resp 15 08/06/23 07:15 BP 148/83 08/06/23 07:15 Pulse Ox 98 08/06/23 07:15 FiO2 Intake & Output 08/05/23 08/06/23 08/06/23 18:59 06:59 18:59 Intake Total 340 Balance 340 Intake: Oral 340 Other: Voiding Method Toilet # Voids 1 2 - Labs CBC & Chem 7: 08/05/23 05:46 08/05/23 05:46
--- NOTE | 2023-08-06 12:40 | P.DS ---
Providers Date of admission: 08/04/23 07:55 Expected date of discharge: 08/06/23 Attending physician: Mariama Talley Primary care physician: Ray [place] [facility] Course: * 57-year-old patient with past medical history significant for hypertension, history of arthritis, depression, surgical history of appendicectomy and tonsillectomy, tobacco use history presents to the emergency department with complains of near-syncopal episode and chest pain. Patient has been having symptoms for several days however patient started to have worsening symptoms and decided to come to emergency for further evaluation patient also complained of associated weakness and lack of energy. Patient was noted to have elevated blood pressure. * Patient does have history of hypertension and has been on Cozaar at home * Workup in ER included an EKG which showed sinus rhythm no ST segment changes * Initial troponin obtained was within normal limits, serum chemistry showed normal sodium, potassium, carbon dioxide B on and creatinine magnesium and liver profile within normal limits * Blood pressure the time of admission was 1 96 x 115 * Patient admitted to medical floor with consultation for cardiology echocardiogram and carotid ultrasound ordered * 08/05/2023: Patient seen and evaluated bedside, patient echocardiogram completed, carotid ultrasound negative for hemodynamically significant stenosis, seen by cardiology, blood pressure better controlled, renal duplex completed mild renal artery stenosis noted bilaterally. Urine studies pending 24-hour urine collection for catecholamines to be completed by tomorrow then patient will be discharged home * 08/06/23: Patient seen and everted bedside, blood pressure has improved, patient discharged on Cozaar and amlodipine outpatient follow-up with cardiology, aldosterone levels, serum renin and cortisol levels within normal limits 24-hour urine catecholamine collected pending REVIEW OF SYSTEMS: Chest pain, fatigue resolved, syncopal episode recurrent resolved CONSTITUTIONAL: No fever, no malaise, no fatigue. HEENT: No recent visual problems or hearing problems. Denied any sore throat. CARDIOVASCULAR: No chest pain, orthopnea, PND, no palpitations, no syncope. PULMONARY: No shortness of breath, no cough, no hemoptysis. GASTROINTESTINAL: No diarrhea, no nausea, no vomiting, no abdominal pain. NEUROLOGICAL: No headaches, no weakness, no numbness. HEMATOLOGICAL: Denies any bleeding or petechiae. GENITOURINARY: Denies any burning micturition, frequency, or urgency. MUSCULOSKELETAL/RHEUMATOLOGICAL: Denies any joint pain, swelling, or any muscle pain. ENDOCRINE: Denies any polyuria or polydipsia. PHYSICAL EXAMINATION: GENERAL: The patient is alert and oriented x3, not in any acute distress. Well developed, well nourished. HEENT: Pupils are round and equally reacting to light. EOMI. No scleral icterus. CARDIOVASCULAR: S1 and S2 present. No murmurs, rubs, or gallops. PULMONARY: Chest is clear to auscultation, no wheezing or crackles. ABDOMEN: Soft, nontender, nondistended, normoactive bowel sounds. No palpable organomegaly. MUSCULOSKELETAL: No joint swelling or deformity. EXTREMITIES: No cyanosis, clubbing, or pedal edema. NEUROLOGICAL: Gross neurological examination did not reveal any focal deficits. SKIN: No rashes. Assessment: Assessment and plan * Accelerated hypertension * Presyncope * Chest pain ruled out ACS * History of congenital heart disease with surgery in childhood * Nicotine dependence * In regards to elevated blood pressure, carotid ultrasound negative for hemodynamically significant stenosis, echocardiogram shows preserved ejection fraction. Continue Cozaar, does increase/continue amlodipine. Prescription provided * Renal artery Doppler ultrasound shows mild renal artery stenosis ,r outpatient follow-up with cardiology * In regards to chest pain, likely secondary to hypertension, negative troponins Patient Condition at Discharge: Fair Plan - Discharge Summary Discharge Rx Participant: No New Discharge Prescriptions: New Losartan [Cozaar] 100 mg PO DAILY 30 Days #60 tab amLODIPine [Norvasc] 10 mg PO DAILY 30 Days #30 tab Continue Aspirin 81 mg PO DAILY Discontinued Losartan [Cozaar] 50 mg PO DAILY Discharge Medication List Aspirin 81 mg PO DAILY 08/04/23 [History] Losartan [Cozaar] 100 mg PO DAILY 30 Days #60 tab 08/06/23 [Rx] amLODIPine [Norvasc] 10 mg PO DAILY 30 Days #30 tab 08/06/23 [Rx] Follow up Appointment(s)/Referral(s): Esau Mcgregor MD [STAFF PHYSICIAN] - 1 Week Ray Bangura DO [Primary Care Provider] - 1-2 days Discharge Disposition: HOME SELF-CARE
[2023-08-12 12:16] LABS: Metanephrines 24 Hour,Urine 73 ug/day (52-341); Normetanephrine 24 Hour,Urine 297 ug/day (88-444); Total Metanephrines 24 Hour,Ur 370 ug/day (140-785); Urine Creatinine, 24 Hr 1.3 gm/24h (0.8-1.8)
== END 2023-08-06 13:10 | disposition home or self-care (01) ==
LOC: EC 05:40 → 6NMEDSUR 07:55
PROVIDERS: ADMIT Hospitalist; ATTEND Hospitalist
DX: R55 Syncope and collapse (principal); R07.9 Chest pain, unspecified; I16.0 Hypertensive urgency; I10 Essential (primary) hypertension; R53.1 Weakness; F32.A Depression, unspecified; Z87.891 Personal history of nicotine dependence; Z79.82 Long term (current) use of aspirin; Z79.899 Other long term (current) drug therapy; Z88.1 Allergy status to other antibiotic agents
CPT/HCPCS: 99285; 36415; 93005; 93306; 83835 ×2; 80061; 80053; 80048; 82533; 82088; 84244; 83735; 84484; 85025 ×2; 85610; 85730; 81003; 71046; 93975; 93880; G0378 ×3

== ENCOUNTER → 2023-10-22 | Outpatient (CLI) | payer BC ==
--- NOTE | 2023-10-22 10:16 | XR ---
EXAMINATION TYPE: XR ankle limited RT DATE OF EXAM: 10/22/2023 10:05 AM CLINICAL INDICATION:Female, 58 years old with history of M76.61 Achilles tendinitis right leg; COMPARISON: None TECHNIQUE: XR ankle limited RT; ankle is imaged in frontal, lateral and oblique projections. FINDINGS: There is no evidence of acute osseous pathology. The joint spaces are well-preserved without evidenc e of subluxation or dislocation. Kager's fat pad is intact. Soft tissues are within normal limits. No radiopaque foreign bodies are identified. Calcaneal plantar spurring and calcaneal Achilles enthesop hyte formation is present. There is thickening of the Achilles tendon near its insertion. There is a prominent posterior superior aspect of the calcaneus. IMPRESSION: 1. No evidence of acute fracture. 2. 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
== END | disposition home or self-care (01) ==
LOC: RADXRMAIN 09:49
PROVIDERS: ATTEND Family Medicine
DX: M76.61 Achilles tendinitis, right leg (principal)

== ENCOUNTER 2023-11-27 08:48 | Observation (INO) | payer BC ==
--- NOTE | 2023-11-27 09:26 | ED ---
Syncope HPI - General Chief Complaint: Syncope Stated Complaint: Dizziness Time Seen by Provider: 11/27/23 09:00 Source: patient, family, RN notes reviewed Mode of arrival: ambulatory Limitations: no limitations - History of Present Illness Initial Comments: This is a 58 year old female who presents to the emergency department for a syncopal episode. States that she has had recurrent problems with the syncopal episodes, most recently 6 months ago. She initially had a thorough cardiac workup, which she states was unremarkable. She is now waiting to see a neurologist. This morning, states that she had another one of these episodes. These episodes almost always start with a bad feeling in the pit of her stomach followed by some dizziness. States that she called her when she felt like this was occurring. Her speech started to slow and he said that it slurred. She then had a brief episode where she lost consciousness. States that she has also had problems with frequent blood pressure fluctuations and frequent thirst and urination. She did test positive for influenza 2 days ago and reports fatigue associated with this. MD Complaint: loss of consciousness - Related Data Home Medications Medication Instructions Recorded Confirmed Aspirin EC [Ecotrin Low Dose] 162 mg PO DAILY 11/27/23 11/27/23 Losartan Potassium [Cozaar] 100 mg PO DAILY 11/27/23 11/27/23 Naproxen [Naprosyn] 500 mg PO BID 11/27/23 11/27/23 amLODIPine [Norvasc] 10 mg PO HS 11/27/23 11/27/23 Allergies Allergy/AdvReac Type Severity Reaction Status Date / Time azithromycin Allergy Rapid Verified 11/27/23 09:23 [From Zithromax Z-Adal] Heart Rate Review of Systems ROS Statement: Those systems with pertinent positive or pertinent negative responses have been documented in the HPI. ROS Other: All systems not noted in ROS Statement are negative. Past Medical History Past Medical History: Hypertension Additional Past Medical History / Comment(s): HEART MURMUR SINCE CHILD. GALLBLADDER DISORDER. RINGING IN BILAT EARS History of Any Multi-Drug Resistant Organisms: None Reported Past Surgical History: Appendectomy, Breast Surgery, Tonsillectomy, Tubal Ligation Additional Past Surgical History / Comment(s): BREAST REDUCTION, COLONOSCOPY, RE CTAL SURGERY AFTER SON BORN Past Anesthesia/Blood Transfusion Reactions: Motion Sickness Past Psychological History: Depression Smoking Status: Vaper Past Alcohol Use History: None Reported Past Drug Use History: None Reported - Past Family History Mother Family Medical History: Cancer General Exam Limitations: no limitations General appearance: alert, in no apparent distress Head exam: Present: atraumatic, normocephalic, normal inspection Eye exam: Present: normal appearance, PERRL, EOMI. Absent: scleral icterus, conjunctival injection, periorbital swelling Respiratory exam: Present: normal lung sounds bilaterally. Absent: respiratory distress, wheezes, rales, rhonchi, stridor Cardiovascular Exam: Present: regular rate, normal rhythm, normal heart sounds. Absent: systolic murmur, diastolic murmur, rubs, gallop, clicks Neurological exam: Present: alert, oriented X3, CN II-XII intact Expanded Cerebellar function: Finger to Nose: Normal, Romberg: Normal Motor strength exam: RUE: 5, LUE: 5, RLE: 5, LLE: 5 Psychiatric exam: Present: normal affect, normal mood Skin exam: Present: warm, dry, intact, normal color. Absent: rash Course Vital Signs 11/27/23 11/27/23 11/27/23 08:54 08:59 09:59 Temperature 98.7 F Pulse Rate 77 86 85 Respiratory 18 16 16 Rate Blood Pressure 143/80 142/85 139/81 O2 Sat by Pulse 96 98 98 Oximetry 11/27/23 11/27/23 11/27/23 11:49 14:00 15:01 Temperature Pulse Rate 73 85 85 Respiratory 16 16 16 Rate Blood Pressure 126/70 120/70 123/75 O2 Sat by Pulse 95 98 98 Oximetry Medical Decision Making - Medical Decision Making This is a 58-year-old female who presents to the emergency department for syncope. Was pt. sent in by a medical professional or institution? @ -No Did you speak to anyone other than the patient for history? @ -Her provided the information about her behavior on the phone. Did you review nursing and triage notes? @ -Yes, and I agree, it is accurate with regards to the patient's symptoms. Were old charts reviewed? @ -No Differential Diagnosis? @ -Differential Syncope: Valvular disease, hypertrophic cardiomyopathy, pulmonary embolism, tamponade, tachycardia, bradycardia, [place], hypovolemia, hemorrhage, dissection, anemia, intracranial hemorrhage, seizure, hypoglycemia, carbon monoxide poisoning, this is not meant to be an all-inclusive list. EKG interpreted by me (3pts min.)? @ -EKG interpreted by me demonstrating the following: Sinus rhythm. Ventricular rate 75 bpm, VT interval 148 ms, QRS duration 91 ms, QTc 390 ms. X-rays interpreted by me (1pt min.)? @ -Chest x-ray obtained, my interpretation identifies no localized consolidations or infiltrates. CT interpreted by me (1pt min.)? @ -CT scan of the brain obtained. My interpretation identifies no evidence of acute intracranial hemorrhage. U/S interpreted by me (1pt. min.)? @ -Not obtained What testing was considered but not performed? (CT, X-rays, U/S, labs)? Why? @ -None What meds were considered but not given? Why? @ -None Did you discuss the management of the patient with other professionals? @ -Yes, Dr. Dickerson, who accepts the patient for admission. Did you reconcile home meds? @ -Yes Was smoking cessation discussed for >3mins.? @ -I discussed smoking cessation for greater than 3 minutes. The risk of smoking were discussed with the patient including but not limited to risks of cancer, stroke, coronary artery disease and COPD. Also discussed with patient were multiple methods of quitting smoking. Lastly we discussed the financial cost of smoking. Was critical care preformed (if so, how long)? @ -No Were there social determinants of health that impacted care today? How? (Homelessness, low income, unemployed, alcoholism, drug addiction, transportation, low edu. Level, literacy, decrease access to med. care, halfway, rehab)? @ -No Was there de-escalation of care discussed even if they declined? (Discuss DNR or withdrawal of care, Hospice)? @ -No What co-morbidities impacted this encounter? (DM, HTN, Smoking, COPD, CAD, Cancer, CVA, Hep., AIDS, mental health diagnosis, sleep apnea, morbid obesity)? @ -Smoking, HTN Was patient admitted / discharged? @ -Admitted. Lab work demonstrates elevated liver enzymes and was otherwise fairly unremarkable. Urinalysis negative for signs of infection. Chest x-ray o btained revealing no acute findings. CT scan of the brain obtained as well, also revealing no acute process. Patient's episode of slurred speech followed by syncope is concerning for potential TIA. Discussed the option of admission versus discharge home with follow-up with the patient and her . States that they are scared of going home and having another one of these episodes happen again, and request to proceed with admission. Patient subsequently admitted to medicine for dizziness and possible TIA. Consult placed for neurology. Undiagnosed new problem with uncertain prognosis? @ -None Drug Therapy requiring intensive monitoring for toxicity (Heparin, Nitro, Insulin, Cardizem)? @ -None Were any procedures done? @ -None Diagnosis/symptom? @ -Dizziness, possible TIA Acute, or Chronic, or Acute on Chronic? @ -Acute Uncomplicated (without systemic symptoms) or Complicated (systemic symptoms)? @ -Complicated Side effects of treatment? @ -None Exacerbation, Progression, or Severe Exacerbation] @ -Not applicable Poses a threat to life or bodily function? @ -Yes This case was discussed in detail with the attending ED physician, Dr. Desir. Pr esentation, findings, and treatment plan discussed in detail as well. - Lab Data Result diagrams: 11/27/23 09:08 11/27/23 09:08 Lab Results 11/27/23 11/27/23 11/27/23 Range/Units 09:08 09:08 09:08 WBC 5.0 (3.8-10.6) k/uL RBC 4.15 (3.80-5.40) m/uL Hgb 13.1 (11.4-16.0) gm/dL Hct 38.6 (34.0-46.0) % MCV 93.1 (80.0-100.0) fL MCH 31.6 (25.0-35.0) pg MCHC 34.0 (31.0-37.0) g/dL RDW 13.8 (11.5-15.5) % Plt Count 217 (150-450) k/uL MPV 8.9 Neutrophils % 76 % Lymphocytes % 16 % Monocytes % 5 % Eosinophils % 1 % Basophils % 0 % Neutrophils # 3.8 (1.3-7.7) k/uL Lymphocytes # 0.8 L (1.0-4.8) k/uL Monocytes # 0.3 (0-1.0) k/uL Eosinophils # 0.1 (0-0.7) k/uL Basophils # 0.0 (0-0.2) k/uL PT 10.0 (10.0-12.5) sec INR 0.9 (<1.2) APTT 25.4 (22.0-30.0) sec Sodium (137-145) mmol/L Potassium (3.5-5.1) mmol/L Chloride (98-107) mmol/L Carbon Dioxide (22-30) mmol/L Anion Gap mmol/L BUN (7-17) mg/dL Creatinine (0.52-1.04) mg/dL Est GFR (CKD-EPI)AfAm (>60 ml/min/1.73 sqM) Est GFR (CKD-EPI)NonAf (>60 ml/min/1.73 sqM) Glucose (74-99) mg/dL Calcium (8.4-10.2) mg/dL Magnesium (1.6-2.3) mg/dL Total Bilirubin (0.2-1.3) mg/dL AST (14-36) U/L ALT (4-34) U/L Alkaline Phosphatase (38-126) U/L Ammonia (<30) umol/L Troponin I (0.000-0.034) ng/mL Total Protein (6.3-8.2) g/dL Albumin (3.5-5.0) g/dL TSH (0.465-4.680) mIU/L Urine Color Colorless Urine Appearance Clear (Clear) Urine pH 6.5 (5.0-8.0) Ur Specific [place] 1.003 (1.001-1.035) Urine Protein Negative (Negative) Urine Glucose (UA) Negative (Negative) Urine Ketones Negative (Negative) Urine Blood Negative (Negative) Urine Nitrite Negative (Negative) Urine Bilirubin Negative (Negative) Urine Urobilinogen <2.0 (<2.0) mg/dL Ur Leukocyte Esterase Negative (Negative) 11/27/23 11/27/23 11/27/23 Range/Units 09:08 09:08 10:02 WBC (3.8-10.6) k/uL RBC (3.80-5.40) m/uL Hgb (11.4-16.0) gm/dL Hct (34.0-46.0) % MCV (80.0-100.0) fL MCH (25.0-35.0) pg MCHC (31.0-37.0) g/dL RDW (11.5-15.5) % Plt Count (150-450) k/uL MPV Neutrophils % % Lymphocytes % % Monocytes % % Eosinophils % % Basophils % % Neutrophils # (1.3-7.7) k/uL Lymphocytes # (1.0-4.8) k/uL Monocytes # (0-1.0) k/uL Eosinophils # (0-0.7) k/uL Basophils # (0-0.2) k/uL PT (10.0-12.5) sec INR (<1.2) APTT (22.0-30.0) sec Sodium 143 (137-145) mmol/L Potassium 4.0 (3.5-5.1) mmol/L Chloride 108 H (98-107) mmol/L Carbon Dioxide 28 (22-30) mmol/L Anion Gap 7 mmol/L BUN 13 (7-17) mg/dL Creatinine 0.45 L (0.52-1.04) mg/dL Est GFR (CKD-EPI)AfAm >90 (>60 ml/min/1.73 sqM) Est GFR (CKD-EPI)NonAf >90 (>60 ml/min/1.73 sqM) Glucose 111 H (74-99) mg/dL Calcium 8.6 (8.4-10.2) mg/dL Magnesium 1.9 (1.6-2.3) mg/dL Total Bilirubin 0.6 (0.2-1.3) mg/dL AST 61 H (14-36) U/L ALT 129 H (4-34) U/L Alkaline Phosphatase 174 H (38-126) U/L Ammonia 18 (<30) umol/L Troponin I <0.012 (0.000-0.034) ng/mL Total Protein 6.5 (6.3-8.2) g/dL Albumin 4.0 (3.5-5.0) g/dL TSH 1.760 (0.465-4.680) mIU/L Urine Color Urine Appearance (Clear) Urine pH (5.0-8.0) Ur Specific [place] (1.001-1.035) Urine Protein (Negative) Urine Glucose (UA) (Negative) Urine Ketones (Negative) Urine Blood (Negative) Urine Nitrite (Negative) Urine Bilirubin (Negative) Urine Urobilinogen (<2.0) mg/dL Ur Leukocyte Esterase (Negative) - Radiology Data Radiology results: report reviewed, image reviewed Disposition Clinical Impression: Nicotine dependence, TIA (transient ischemic attack), Dizziness Disposition: ADMITTED IP TO THIS [facility] Time of Disposition: 12:08
[2023-11-27] MEDS: SODIUM CHLORIDE 0.9% 1,000 ML IV STA (09:28)
[2023-11-27 09:44] LABS: Appearance,Urine Clear (Clear); Basophils % (A) 0 %; Bilirubin,Urine Negative (Negative); Blood,Urine Negative (Negative); Color,Urine Colorless; Eosinophils # (A) 0.1 k/uL (0-0.7); Eosinophils % (A) 1 %; Glucose,Urine (UA) Negative (Negative); HCT 38.6 % (34.0-46.0); HGB 13.1 gm/dL (11.4-16.0); Ketones,Urine Negative (Negative); Leukocyte Esterase,Urine Negative (Negative); Lymphocytes # (A) 0.8 k/uL (1.0-4.8); Lymphocytes % (A) 16 %; MCH 31.6 pg (25.0-35.0); MCV 93.1 fL (80.0-100.0); Mean Platelet Volume 8.9; Monocytes # (A) 0.3 k/uL (0-1.0); Monocytes % (A) 5 %; Neutrophils # (A) 3.8 k/uL (1.3-7.7); Neutrophils % (A) 76 %; Nitrite,Urine Negative (Negative); PH, Urine 6.5 (5.0-8.0); Platelet Count 217 k/uL (150-450); Protein,Urine Negative (Negative); RBC 4.15 m/uL (3.80-5.40); RDW 13.8 % (11.5-15.5); Specific Gravity,Urine 1.003 (1.001-1.035); Urobilinogen,Urine <2.0 mg/dL (<2.0)
--- NOTE | 2023-11-27 09:45 | CT ---
EXAMINATION TYPE: CT brain wo con CT DLP: 1095.4 mGycm, Automated exposure control for dose reduction was used. DATE OF EXAM: 11/27/2023 9:30 AM COMPARISON: None. CLINICAL INDICATION:Female, 58 years old with history of Syncope, syncope TECHNIQUE: Brain: Axial CT images of the brain were obtained with coronal and sagittal reformats created and rev iewed. Contrast used: None. Oral contrast used: None. FINDINGS: Brain: Extra-axial spaces: No abnormal extra-axial fluid collections. Ventricular system: Within normal limits Cerebral parenchyma: No acute intraparenchymal hemorrhage or mass effect. The quinteros-white junction is well differentiated. Cerebellum: Unremarkable. Mass effect: No evidence of midline shift. Intracranial vasculature: Atherosclerotic calcifications of the intracranial vessels. Soft tissues: Normal. Calvarium/osseous structures: No depressed skull fracture. Paranasal sinuses and mastoid air cells: Mild scattered paranasal sinus disease. Visualized orbits: Orbital contents are intact. IMPRESSION: No acute intracranial process.
--- NOTE | 2023-11-27 09:46 | XR ---
EXAMINATION TYPE: XR chest 2V DATE OF EXAM: 11/27/2023 9:34 AM CLINICAL INDICATION:Female, 58 years old with history of syncope; [facility] COMPARISON: Chest radiographs from 08/04/2023. TECHNIQUE: XR chest 2V Frontal and lateral views of the chest. FINDINGS: Lungs/Pleura: There is no evidence of pleural effusion, focal consolidation, or pneumothorax. Pulmonary vascularity: Unremarkable. Heart/mediastinum: Cardiomediastinal silhouette is unremarkable. Musculoskeletal: No acute osseous pathology. IMPRESSION: No acute cardiopulmonary disease/process.
[2023-11-27 09:52] LABS: INR 0.9 (<1.2); Partial Thromboplastin Time 25.4 sec (22.0-30.0)
[2023-11-27 09:56] LABS: ALT 129 U/L (4-34); AST 61 U/L (14-36); African American GFR (CKD) >90 (>60 ml/min/1.73 sqM); Alkaline Phosphatase 174 U/L (38-126); Anion Gap 7 mmol/L; Blood Urea Nitrogen 13 mg/dL (7-17); Calcium 8.6 mg/dL (8.4-10.2); Carbon Dioxide 28 mmol/L (22-30); Chloride 108 mmol/L (98-107); Glucose 111 mg/dL (74-99); Magnesium 1.9 mg/dL (1.6-2.3); Non-African American GFR(CKD) >90 (>60 ml/min/1.73 sqM); Sodium 143 mmol/L (137-145); Total Bilirubin 0.6 mg/dL (0.2-1.3); Total Protein 6.5 g/dL (6.3-8.2)
[2023-11-27] MEDS ORDERED: HYDROcodone/APAP 5-325MG 1 EACH TAB PO PRN (12:08)
[2023-11-27] MEDS ORDERED: ONDANSETRON 4 MG/2 ML VIAL IVP PRN (12:08)
[2023-11-27] MEDS ORDERED: NALOXONE 0.4 MG/ML 1 ML VIAL IV PRN (12:08)
[2023-11-27] MEDS ORDERED: MORPHINE SULFATE 4 MG/ML SYRINGE IV PRN (12:08)
[2023-11-27] MEDS: NAPROXEN 250 MG TAB PO SCH (20:56)
[2023-11-27] MEDS: ACETAMINOPHEN TAB 325 MG TAB PO PRN (20:56)
[2023-11-27] MEDS: amLODIPine 10 MG TAB PO SCH (20:56)
[2023-11-27] MEDS ORDERED: NAPROXEN 250 MG TAB PO PRN (22:40)
--- NOTE | 2023-11-27 23:09 | P.HPIM ---
History of Present Illness H&P Date: 11/27/23 Chief Complaint: Dizziness Patient is a 58-year-old female with a known history of hypertension, history of heart normal, depression and daily vaping presents to ER due to complaints of slurred speech and dizziness. Patient states that she was tested positive for flu 2 days ago. She has been having diarrhea. Today morning she felt like GI upset and did have 1 episode of diarrhea followed by patient felt tired and warm and sweaty and felt dry mouth and was also having slurred speech. Unsure whether she loss of consciousness. Symptoms lasted about 45 minutes. Patient states that she felt weakness in bilateral upper extremities and felt heavy. Denies any bowel or bladder incontinence. Patient states that she almost passed out twice before when she had urinary t ract infection and also COVID-19 infection. Denies any fever. Blood pressure was 143/80 and pulse ox 96% on room air on admission. Patient was recently admitted in July 2023 due to presyncopal episode patient had workup done including echocardiogram and carotid duplex and also renal artery duplex was done due to accelerated hypertension. Studies were essentially negative. Patient is supposed to see neurologist as an outpatient. Chest x-ray showed no acute cardiopulmonary process CT head showed no acute intracranial process. EKG showed sinus rhythm Laboratory showed WC 5.0 hemoglobin 13.1 and platelets 217 Sodium 143 potassium 4.0 chloride 108 bicarb is 28 BUN is 13 and creatinine 0.45 and blood sugar 111 LFTs showed bilirubin 0.6, AST 61 ALT 129 and alk phos 174 Ammonia 18 and troponin x 1 negative and TSH 1.760 albumin 4.0 Urinalysis is negative for infection. Review of Systems Constitutional: Patient states that she had subjective fevers at home. Does have generalized weakness. No weight loss. No loss of appetite. Abdomen: Patient denied nausea vomiting. Did have 1 episode of diarrhea. No abdominal pain. Cardiovascular: Patient denies any chest pain or short of breath no palpitations. Respiratory: patient denied any cough is from production. No shortness of breath Neurologic: Patient denied any numbness or tingling headache. Musculoskeletal: Patient denies any complaints of joint swelling or deformity. Skin: Negative Psychiatric: Negative Endocrine: No heat or cold intolerance. No recent weight gain. Genitourinary: No dysuria or hematuria. All other 14 point ROS negative except the above Past Medical History Past Medical History: Hypertension Additional Past Medical History / Comment(s): HEART MURMUR SINCE CHILD. GALLBLADDER DISORDER. RINGING IN BILAT EARS History of Any Multi-Drug Resistant Organisms: None Reported Past Surgical History: Appendectomy, Breast Surgery, Tonsillectomy, Tubal Ligation Additional Past Surgical History / Comment(s): BREAST REDUCTION, COLONOSCOPY, RECTAL SURGERY AFTER SON BORN Past Anesthesia/Blood Transfusion Reactions: Motion Sickness Past Psychological History: Depression Smoking Status: Vaper Past Alcohol Use History: None Reported Past Drug Use History: None Reported - Past Family History Mother Family Medical History: Cancer Medications and Allergies Home Medications Medication Instructions Recorded Confirmed Type Aspirin EC [Ecotrin Low Dose] 162 mg PO DAILY 11/27/23 11/27/23 History Losartan Potassium [Cozaar] 100 mg PO DAILY 11/27/23 11/27/23 History Naproxen [Naprosyn] 500 mg PO BID 11/27/23 11/27/23 History amLODIPine [Norvasc] 10 mg PO HS 11/27/23 11/27/23 History Allergies Allergy/AdvReac Type Severity Reaction Status Date / Time azithromycin Allergy Rapid Verified 11/27/23 09:23 [From Zithromax Z-Adal] Heart Rate Physical Exam Vitals: Vital Signs Temp Pulse Resp BP Pulse Ox 11/27/23 11:49 73 16 126/70 95 11/27/23 09:59 85 16 139/81 98 11/27/23 08:59 86 16 142/85 98 11/27/23 08:54 98.7 F 77 18 143/80 96 Intake and Output 11/26/23 11/27/23 11/27/23 22:59 06:59 14:59 Other: Weight 88.451 kg PHYSICAL EXAMINATION: Patient is lying in the bed comfortably, no acute distress, awake alert and oriented.. HEENT: Normocephalic. Neck is supple. Pupils reactive. Nostrils clear. Oral cavity is moist. Neck reveals no JVD, carotid bruits, or thyromegaly. CHEST EXAMINATION: Trachea is central. Symmetrical expansion. Lung reagan clear to auscultation and percussion. CARDIAC: Normal S1, S2 with no gallops. Systolic murmur present ABDOMEN: Soft. Bowel sounds normal. No organomegaly. No abdominal bruits. Extremities: reveal no edema. No clubbing or cyanosis Neurologically awake, alert, oriented x3 with well-coordinated movements. No focal deficits noted Skin: No rash or skin lesions. Psychiatric: Coperative. Nonsuicidal Musculoskeletal: No joint swelling or deformity. Normal range of motion. Results CBC & Chem 7: 11/27/23 09:08 11/27/23 09:08 Labs: Abnormal Lab Results - Last 24 Hours (Table) 11/27/23 11/27/23 Range/Units 09:08 09:08 Lymphocytes # 0.8 L (1.0-4.8) k/uL Chloride 108 H (98-107) mmol/L Creatinine 0.45 L (0.52-1.04) mg/dL Glucose 111 H (74-99) mg/dL AST 61 H (14-36) U/L ALT 129 H (4-34) U/L Alkaline Phosphatase 174 H (38-126) U/L Thrombosis Risk Factor Assmnt - DVT/VTE Prophylaxis DVT/VTE Prophylaxis: Pharmacologic Prophylaxis ordered Assessment and Plan Assessment: Dizziness and slurred speech followed by diarrhea likely due to orthostatic hypotension and possible TIA Acute influenza A infection. Diagnosed 2 days ago Elevated liver enzymes/transaminitis Recent admission with presyncopal episode. Had workup including 2D echo and carotid duplex. Hypertension History of congenital heart disease with surgery in childhood Daily vaping Obesity with BMI 35.7 DVT prophylaxis with heparin subcu Plan: Patient was given IV fluid bolus in the ER. Continuous telemetry. Continue with neurochecks and follow-up closely. Started back on home blood pressure medication including Cozaar and lisinopril. Orthostatic vitals Due to elevated liver enzymes, ultrasound right upper quadrant abdominal was ordered and hepatitis panel. Continue with aspirin and lipid panel was ordered. Neurology was consulted due to possible TIA. Follow-up CBC and CMP tomorrow. Time with Patient: Greater than 30
[2023-11-28] MEDS: HEPARIN SODIUM,PORCINE 5,000 UNIT/ML 1 ML VIAL SQ SCH (01:02)
[2023-11-28 08:44] LABS: Urine Alcohol Negative (Negative); Urine Barbiturate Negative (Negative); Urine Cocaine Negative (Negative); Urine Methadone Negative (Negative); Urine Opiates Negative (Negative); Urine Phencyclidine Negative (Negative)
[2023-11-28] MEDS: LOSARTAN 50 MG TAB PO SCH (08:49)
[2023-11-28] MEDS: ASPIRIN 81 MG PO SCH (08:49)
--- NOTE | 2023-11-28 08:59 | US ---
EXAMINATION TYPE: US abdomen limited DATE OF EXAM: 11/28/2023 COMPARISON: NONE CLINICAL INDICATION: Female, 58 years old with history of elevated LFTs; LFTs, nausea TECHNIQUE: Multiple sonographic images of the right upper quadrant are obtained. FINDINGS: EXAM MEASUREMENTS: Liver Length: 16.4 cm Gallbladder Wall: Surgically absent CBD: 0.5 cm Right Kidney: 10.7x4.1x6.4 cm Pancreas: Tail obscured by overlying bowel gas Liver: enlarged Gallbladder: Surgically absent Evidence for sonographic Gunter's sign: No CBD: wnl Right Kidney: No hydronephrosis or masses seen exam limited by bowel and body habitus IMPRESSION: 1. No evidence for acute process. 2. Mild hepatomegaly.
[2023-11-28 10:26] LABS: Basophils # (A) 0.02 X 10*3/uL (0.00-0.10); Basophils % (A) 0.4 %; Eosinophils # (A) 0.03 X 10*3/uL (0.04-0.35); Eosinophils % (A) 0.6 %; HCT 41.8 % (37.2-46.3); HGB 13.2 g/dL (12.0-15.0); Lymphocytes # (A) 1.86 X 10*3/uL (0.90-5.00); Lymphocytes % (A) 40.3 %; MCH 29.5 pg (27.0-32.0); MCHC 31.6 g/dL (32.0-37.0); MCV 93.5 FL (80.0-97.0); Mean Platelet Volume 11.6 FL (9.5-12.2); Monocytes # (A) 0.31 X 10*3/uL (0.20-1.00); Monocytes % (A) 6.7 %; NRBC Per 100 WBC 0 X 10*3/uL (0.00-0.01); Neutrophils # (A) 2.39 X 10*3/uL (1.80-7.70); Neutrophils % (A) 51.8 %; Platelet Count 236 X 10*3/uL (140-440); RBC 4.47 X 10*6/uL (4.10-5.20); RDW 14.1 % (11.5-14.5); WBC 4.62 X 10*3/uL (4.50-10.00)
--- NOTE | 2023-11-28 10:39 | P.CNNES ---
History of Present Illness Consult date: 11/28/23 Requesting physician: Merari Richards Reason for Consult: possible tia, syncope History of Present Illness: This is a 58-year-old woman who presents the emergency department because of syncopal episodes. Patient is accompanied with her was at bedside. She presented because of the an episode of she felt she's having some stomach pain and feels about "throw up or have diarrhea" then had a brief episode of loss of consciousness lasting for seconds and the whole body is weak, and brief body jerks as as she shivering was shaken, feel hot, sweating. She is back to baseline within 10-15 minutes. Patient stated that she's been having these episodes for the past 5-6 years once every 6-7 months. With these episodes the she'll have sometimes a urinary or bowel incontinence. Sometimes she'll go the bathroom and she'll have 2 empty her urine and bowel. She stated that with these episodes even though she loses consciousness briefly she is weak. Her stated that while she is sleeping at night she'll have a brief episodes of brief body jerks just like the arm is a jerking no clot full-body jerks. Patient stated that she had extensive for workup by staffing operations manager was negative. She is in the process of falls up with a neurologist Dr. Schaffer as an outpatient. Patient denies any official diagnosis of seizures in the past. She denies any alcohol use, illicit drug use. Patient stated that her son has a history of absence seizure Some of the workup during his hospital visit consisted of: AST is 61 ALT is 129, ammonia is 18. Sodium is 143, calcium is 8.6, magnesium is 1.9 TSH is 1.76 Urine drug screen is not detected CT of the head is reported as no acute intracranial process. I personally reviewed the CT and I agree with the report. Review of Systems Review of system: The 12 point system was reviewed and apparent positive and negative per HPI. Past Medical History Past Medical History: Hypertension Additional Past Medical History / Comment(s): HEART MURMUR SINCE CHILD. GALLBLADDER DISORDER. RINGING IN BILAT EARS History of Any Multi-Drug Resistant Organisms: None Reported Past Surgical History: Appendectomy, Breast Surgery, Tonsillectomy, Tubal Ligation Additional Past Surgical History / Comment(s): BREAST REDUCTION, COLONOSCOPY, RECTAL SURGERY AFTER SON BORN Past Anesthesia/Blood Transfusion Reactions: Motion Sickness Past Psychological History: Depression Smoking Status: Vaper Past Alcohol Use History: None Reported Past Drug Use History: None Reported - Past Family History Mother Family Medical History: Cancer Medications and Allergies Home Medications Medication Instructions Recorded Confirmed Type Aspirin EC [Ecotrin Low Dose] 162 mg PO DAILY 11/27/23 11/27/23 History Losartan Potassium [Cozaar] 100 mg PO DAILY 11/27/23 11/27/23 History Naproxen [Naprosyn] 500 mg PO BID 11/27/23 11/27/23 History amLODIPine [Norvasc] 10 mg PO HS 11/27/23 11/27/23 History Acetaminophen Tab [Tylenol] 650 mg PO Q6HR PRN tab 11/28/23 Rx levETIRAcetam [Keppra] 1,000 mg PO Q12HR 30 Days #120 tab 11/28/23 Rx Allergies Allergy/AdvReac Type Severity Reaction Status Date / Time azithromycin Allergy Rapid Verified 11/27/23 09:23 [From Zithromax Z-Adal] Heart Rate Physical Examination - Vital Signs Vital Signs: Vital Signs Temp Pulse Pulse Resp BP BP Pulse Ox 11/28/23 07:00 97.9 F 67 19 102/59 97 11/28/23 02:00 98.4 F 74 16 107/69 97 11/27/23 20:00 100.3 F H 83 16 129/77 94 L 11/27/23 15:12 98.9 F 69 18 130/76 96 11/27/23 15:01 85 16 123/75 98 11/27/23 14:00 85 16 120/70 98 11/27/23 11:49 73 16 126/70 95 Intake and Output 11/27/23 11/28/23 11/28/23 22:59 06:59 14:59 Intake Total 118 Balance 118 Intake: Oral 118 Other: # Voids 1 GENERAL: The patient is lying in bed and is not in acute distress. NEUROLOGICAL: Higher mental function: The patient is awake, alert, oriented to self, place and time. Patient is following commands. No aphasia and no neglect. Cranial nerves: The pupils are round, equal and reactive to light and accommodation. Visual reagan are full to confrontation throughout. Extraocular movement is intact no nystagmus is noted. Facial sensation is normal to touch throughout. The facial strength is normal throughout. Hearing is normal bilaterally to hand rub. Tongue is midline and moved [id number] without any difficulty. No dysarthria is noted. Shoulder shrug is normal bilaterally. Motor: Gait is normal. The strength is 5 over 5 throughout. Normal tone and bulk. Cerebellum: Normal finger to nose heel to jeffers bilaterally. Sensation: Sensation is normal to touch throughout. Reflexes (right/left): 2+ throughout. Plantars are downgoing bilaterally. Results - Laboratory Findings CBC and BMP: 11/28/23 06:15 11/28/23 06:15 Abnormal Lab Findings: Abnormal Labs 11/27/23 11/27/23 09:08 09:08 Lymphocytes # 0.8 L Chloride 108 H Creatinine 0.45 L Glucose 111 H AST 61 H ALT 129 H Alkaline Phosphatase 174 H Assessment and Plan Assessment: This is a 58-year-old woman was having recurrent episodes of brief loss of consciousness prior to the episode she'll have stomach pain and the sensation of throat up or having diarrhea then would have a brief episode of loss of consciousness with post ictal confusion and sometimes would have urinary and b owel incontinence, sweating, shivering with the tremor and at nighttime also would have the brief body jerk. She had extensive cardiac workup which was negative Patient's episodes are likely seizures and she's been having them for the last 5-6 years and has episodes every 6-7 month Plan: I started the patient on Keppra 500 mg every 12 hours. I ordered a routine EEG I ordered MRI the brain seizure protocol. Was updated by the nurse that the compliance technician notified her that there is no availability for the MRI until next possibly Friday. Seizure precautions seizure pads I notified the patient per the [place] DMV, to avoid driving for 6 month until seizure-free, avoid heights, avoids swimming unassisted or using heavy machinery We'll defer the rest of the medical management to primary team Patient will follow up with Dr. Schaffer for her neurological issues. The plan discussed with the patient, her was at bedside and her nurse Thank you for the consultation UPDATE: Patient had the routine EEG and there is a discharge over the left temporal and there appears to be her rhythmicity over bilateral central parietal posterior temporal region lasting between 6-20 seconds. I recommend the patient to be transferred for long-term EEG for further evaluation. I gave the patient a loading dose of Keppra 1500 mg once and Valium 5 mg. I went up on Keppra from 500mg to 1gm every 12 hours. I had multiple conversations with patient, her and her nurse. I updated the primary team. I spend a total of 50 minutes on case. Time with Patient: Greater than 30
[2023-11-28 10:40] LABS: ALT 106 U/L (8-44); AST 45 U/L (13-35); Albumin 4.4 g/dL (3.8-4.9); Alkaline Phosphatase 175 U/L (41-126); BUN/Creat Ratio 21.57 Ratio (12.00-20.00); Blood Urea Nitrogen 15.1 mg/dL (9.0-27.0); Chloride 105 mmol/L (96-109); Chol/HDL Ratio 3.08 Ratio; Glucose 95 mg/dL (70-110); LDL Cholesterol,Calculated 86.7 mg/dL (0.0-131.0); Sodium 143 mmol/L (135-145); Total Bilirubin 0.5 mg/dL (0.3-1.2); Total Protein 6.4 g/dL (6.2-8.2)
[2023-11-28 10:53] LABS: Hepatitis A Antibody IgM Nonreactive; Hepatitis B Core IgM Nonreactive; Hepatitis B Surface Antigen Nonreactive; Hepatitis C IgG Antibody Nonreactive
[2023-11-28] MEDS: levETIRAcetam IV 500 MG/5 ML VIAL IVP STA (14:16)
[2023-11-28] MEDS: levETIRAcetam 500 MG TAB PO SCH ×2 (14:43→20:19)
[2023-11-28 16:03] VITALS: RESP 16
[2023-11-28 21:01] VITALS: BP 131/74; PULSE 83; TEMP 99.1
--- NOTE | 2023-11-29 03:10 | EEG ---
ELECTROENCEPHALOGRAM REPORT CLINICAL HISTORY: This is a 58-year-old woman with recurrent episodes of brief loss of consciousness with urinary and bowel incontinence. The video EEG is obtained to evaluate for seizure epileptiform activity. RELEVANT MEDICATION: The patient is not on any antiepileptic drugs. EEG TYPE: A routine 21-channel EEG with video using the 10/20 electrode placement system. DESCRIPTION: Wakefulness is only obtained. During awake state, the posterior-dominant rhythm consists of [id number] voltage of 9.5 to 10 hertz activity that is well modulated and well sustained. There is no physiological stage 2 sleep architecture. There is focal slowing over the left temporal parietal region. Interictal and ictal; there is sharp and slow waves over the left temporal region and it seems over the T3 lead. During this study, there are runs of 8.5-9.5 hertz sharply contoured activity over the bilateral central, parietal and posterotemporal region about and rarely intermixed with delta activity lasting between 6 seconds to 20 seconds. There does not appear to be any evolution during these episodes. Clinically, the patient has her eyes closed and there is no jerking or tremor. ACTIVATION PROCEDURE: Photic stimulation did not evoke a posterior response. During the photic stimulation, there are sharp and slow waves over left temporal region, but no seizures noted during the study. Hyperventilation is not performed. CLINICAL INTERPRETATION: This is an abnormal routine EEG. The epileptiform discharges over left temporal could increase risk for focal seizure and status epilepticus. During the study, there are runs over the bilateral central, posterotemporal and parietal region lasting between 6 seconds to 20 seconds, but no evolution during the study. I highly recommend a long-term EEG for further evaluation. Clinical correlation is recommended. MMODL / IJN: [id number] / QUETA
--- NOTE | 2023-11-29 05:23 | P.DS ---
Providers Date of admission: 11/27/23 11:44 Expected date of discharge: 11/28/23 Attending physician: Krystina Dickerson Consults: 11/27/23 12:08 Consult Physician Urgent Consulting Provider: Conrad Quick Consult Reason/Comments: Possible TIA, syncope Do you want consulting provider notified?: Yes Primary care physician: [facility] Course: Final diagnosis Dizziness and slurred speech followed by diarrhea possibly secondary to orthostatic hypotension and possible TIA, TIA ruled out Acute influenza A infection. Diagnosed 2 days ago, repeat testing is negative Elevated liver enzymes/transaminitis Recent admission with presyncopal episode. Had workup including 2D echo and carotid duplex. Syncopal episodes likely seizures per neurology with abnormal EEG noted. No epileptiform discharges noted on exam Hypertension History of congenital heart disease with surgery in childhood Daily vaping Obesity with BMI 35.7 DVT prophylaxis Discharge disposition Patient is being transferred in a stable condition with guarded prognosis to [facility] in [place] for continuous EEG monitoring. Patient will follow-up with in the outpatient setting upon discharge. Patient is to continue with Keppra 1000 mg twice daily and close outpatient follow-up with neurology as scheduled. Total time taken is greater than 35 minutes. Hospital course This is a 58-year-old female who was recently admitted with dizziness and slurred speech being closely monitored with concerns of possible TIA initially. Patient undergoing neurological workup and MRI was ordered of the brain although due to staffing issues MRI would either need to be outpatient or at another facility if urgently required. Patient underwent EEG showing sharp and slow waves over the left temporal region as well as runs of sharply contoured activity over the bilateral central parietal and posterior temporal regions but are rarely intermixed with delta activity that last between 6 and 20 seconds. There was no evolution noted during these episodes with no twitching or jerking motions noted as well. Neurology recommending continuous EEG monitoring which we do not have here recommending transfer for tertiary treatment center. Transfer was initiated and patient agreeable with the transfer and was accepted by Dr. Dogulas Urban of [facility] in [place]. Transfer team currently working on a bed. Patient also did report testing positive for influenza A. Patient reported her symptoms started at least 3 to 4 days prior to ER presentation and was told she was outside of the window to initiate Tamiflu. Patient reports she is not vaccinated with influenza and did not want Tamiflu even if warranted. Patient was given a loading dose of IV Keppra and started on 1000 mg twice daily per neurology recommendations. Currently no reports of chest pain, shortness of breath, or palpitations. Patient is afebrile. No reports of nausea or vomiting and patient is tolerating diet. Patient is occasionally having diarrhea. Vital signs are stable and labs within normal limits. Repeat virology testing including influenza, RSV, COVID prior to transfer to [facility] were negative. Please refer to other consultation notes for further HPI. Physical exam: Gen: This is a 58-year-old female who is awake, alert and oriented x 3, well- developed, well-nourished, obese HEENT: Head is atraumatic, normocephalic. Pupils equal, round. Sclerae is anicteric. NECK: Supple. No JVD. No lymphadenopathy. No thyromegaly. LUNGS: Clear to auscultation. No wheezes or rhonchi. No intercostal retractions. HEART: Regular rate and rhythm. No murmur. ABDOMEN: Soft. Bowel sounds are present. No masses. No tenderness. EXTREMITIES: No pedal edema. No calf tenderness. NEUROLOGICAL: Patient is awake, alert and oriented x3. Cranial nerves 2 through 12 are grossly intact. Please refer to medication reconciliation sheet for a list of medications. The impression and plan of care has been dictated by Rosalba Goodwin, Nurse Practitioner as directed. Dr. Babar MD I have performed a history and examination and MDM of this patient, discussed the same with the dictator, and agree with the dictator's assessment and plan as written ,documented as a scribe. Based on total visit time, I have performed more than 50% of the visit. Patient Condition at Discharge: Good Plan - Discharge Summary New Discharge Prescriptions: New levETIRAcetam [Keppra] 1,000 mg PO Q12HR 30 Days #120 tab Acetaminophen Tab [Tylenol] 650 mg PO Q6HR PRN tab PRN Reason: Mild Pain Or Fever > 100.5 Continue Aspirin EC [Ecotrin Low Dose] 162 mg PO DAILY Naproxen [Naprosyn] 500 mg PO BID amLODIPine [Norvasc] 10 mg PO HS Losartan Potassium [Cozaar] 100 mg PO DAILY Discharge Medication List Aspirin EC [Ecotrin Low Dose] 162 mg PO DAILY 11/27/23 [History] Losartan Potassium [Cozaar] 100 mg PO DAILY 11/27/23 [History] Naproxen [Naprosyn] 500 mg PO BID 11/27/23 [History] amLODIPine [Norvasc] 10 mg PO HS 11/27/23 [History] Acetaminophen Tab [Tylenol] 650 mg PO Q6HR PRN tab 11/28/23 [Rx] levETIRAcetam [Keppra] 1,000 mg PO Q12HR 30 Days #120 tab 11/28/23 [Rx] Follow up Appointment(s)/Referral(s): Ray Bangura DO [Primary Care Provider] - 1-2 days Lon Dumont MD [REFERRING] - 1 Week Ambulatory/Diagnostic Orders: Comprehensive Metabolic Panel [LAB.AMB] Time Frame: 3 Days, Location: None Selected Activity/Diet/Wound Care/Special Instructions: Patient is being transferred to [facility] in [place] for continuous EEG monitoring. Patient has been accepted by Dr. Douglas Urban Activity limited until follow-up Follow-up with primary care provider on discharge Follow-up with neurology this week Discuss outpatient MRI Continue with medications as prescribed and discussed with your neurologist Discharge Disposition: DC/TRNS INTERMEDIATE CARE FAC
== END 2023-11-28 21:30 ==
LOC: EC 08:48 → 6NMEDSUR 11:44
PROVIDERS: ADMIT Internal Medicine; ATTEND Internal Medicine
DX: R55 Syncope and collapse (principal); R47.81 Slurred speech; R94.01 Abnormal electroencephalogram [EEG]; J10.2 Influenza due to other identified influenza virus with gastrointestinal manifestations; I10 Essential (primary) hypertension; E66.9 Obesity, unspecified; Z68.35 Body mass index [BMI] 35.0-35.9, adult; R74.01 Elevation of levels of liver transaminase levels; F17.290 Nicotine dependence, other tobacco product, uncomplicated; Z11.52 Encounter for screening for COVID-19; Z79.82 Long term (current) use of aspirin; Z79.899 Other long term (current) drug therapy; Z88.1 Allergy status to other antibiotic agents; Z87.74 Personal history of (corrected) congenital malformations of heart and circulatory system
CPT/HCPCS: 96374; 96375; 96361; 99285; 36415; 95816; 93005; 80061; 80053 ×2; 80074; 84443; 82140; 83735; 84484; 85025 ×2; 85610; 85730; 81003; 80306; 87636; 71046; 76705; 70450; G0378 ×2; J3360; J1953

== ENCOUNTER → 2023-12-06 | Outpatient (CLI) | payer BC ==
[2023-12-06 13:39] LABS: HCT 41.1 % (37.2-46.3); HGB 13.1 g/dL (12.0-15.0); MCH 29.2 pg (27.0-32.0); MCHC 31.9 g/dL (32.0-37.0); MCV 91.7 FL (80.0-97.0); Mean Platelet Volume 10.7 FL (9.5-12.2); NRBC Per 100 WBC 0 X 10*3/uL (0.00-0.01); Platelet Count 383 X 10*3/uL (140-440); RBC 4.48 X 10*6/uL (4.10-5.20); RDW 13.2 % (11.5-14.5); WBC 6.93 X 10*3/uL (4.50-10.00)
[2023-12-06 13:40] LABS: Basophils # (A) 0.05 X 10*3/uL (0.00-0.10); Basophils % (A) 0.7 %; Eosinophils # (A) 0.15 X 10*3/uL (0.04-0.35); Eosinophils % (A) 2.2 %; Lymphocytes # (A) 2.02 X 10*3/uL (0.90-5.00); Lymphocytes % (A) 29.1 %; Monocytes # (A) 0.34 X 10*3/uL (0.20-1.00); Monocytes % (A) 4.9 %; Neutrophils # (A) 4.34 X 10*3/uL (1.80-7.70); Neutrophils % (A) 62.7 %
[2023-12-06 14:04] LABS: ALT 67 U/L (8-44); AST 27 U/L (13-35); Albumin 4.5 g/dL (3.8-4.9); Albumin/Globulin Ratio 2.05 Ratio (1.60-3.17); Alkaline Phosphatase 137 U/L (41-126); BUN/Creat Ratio 20.67 Ratio (12.00-20.00); Blood Urea Nitrogen 12.4 mg/dL (9.0-27.0); Calcium 9.6 mg/dL (8.7-10.3); Carbon Dioxide 27.3 mmol/L (21.6-31.8); Chloride 105 mmol/L (96-109); Chol/HDL Ratio 3.62 Ratio; Globulin 2.2 g/dL (1.6-3.3); Glucose 96 mg/dL (70-110); LDL Cholesterol,Calculated 100.2 mg/dL (0.0-131.0); Potassium 4.8 mmol/L (3.5-5.5); Sodium 143 mmol/L (135-145); Total Bilirubin 0.5 mg/dL (0.3-1.2); Total Protein 6.7 g/dL (6.2-8.2)
== END | disposition home or self-care (01) ==
LOC: LABWHC1 08:58
PROVIDERS: ATTEND Family Medicine
DX: E78.2 Mixed hyperlipidemia (principal); R56.9 Unspecified convulsions
CPT/HCPCS: 36415; 80053; 80061; 80177; 85025

== ENCOUNTER → 2023-12-08 | Outpatient (CLI) | payer BC ==
--- NOTE | 2023-12-08 08:59 | XR ---
EXAMINATION TYPE: XR chest 2V DATE OF EXAM: 12/08/2023 COMPARISON: 11/27/2023 TECHNIQUE: PA and lateral views submitted. HISTORY: Cough FINDINGS: The lungs are clear and there is no pneumothorax, pleural effusion, or focal pneumonia. Heart size normal and no overt failure. Osseous structures demonstrate hypertrophic and degenerative changes of the spine. Osteopenia and AC joint. Correlate for COPD. IMPRESSION: 1. No acute process.
== END | disposition home or self-care (01) ==
LOC: RADXRMAIN 08:15
PROVIDERS: ATTEND Family Medicine
DX: J09.X2 Influenza due to identified novel influenza A virus with other respiratory manifestations (principal); R05.9 Cough, unspecified
CPT/HCPCS: 71046

== ENCOUNTER → 2023-12-18 | Outpatient (CLI) | payer BC ==
--- NOTE | 2023-12-19 10:00 | MR ---
EXAMINATION TYPE: MR brain wo con DATE OF EXAM: 12/18/2023 COMPARISON: None HISTORY: Seizures 6 over last 8 years, just started meds 1 month ago, Dizziness, Ringing in both ear s, Forgetfulness CONTRAST: Performed utilizing 0 mL intravenous Gadavist gadolinium contrast. TECHNIQUE: Multiplanar, multiecho imaging on a 3.0 Jenny magnet is performed through the brain. Stud y is performed within 24 hours of arrival to the hospital. The craniovertebral junction is normal. The pituitary is normal. Diffusion-weighted imaging is performed. No abnormal hyperintensity is present to suggest an acute i ntracranial infarct or acute ischemic change. There are a few scattered punctate areas of hyperintensity on T2 and Inversion Recovery weighted sequ ences which are non-specific but can be related to microvascular ischemic changes. Ventricles and sulci are appropriate for the patient age. Fluid is within the left mastoid air cells. Correlate for mastoiditis. IMPRESSION: 1. Few punctate hyperintensities which are nonspecific. Differential diagnosis could include chronic white matter ischemic changes, migraine headaches, vasculitis. 2. Fluid within the left mastoid air cells. Correlate for mastoiditis.
== END | disposition home or self-care (01) ==
LOC: RADMRIMAIN 16:26
PROVIDERS: ATTEND Family Medicine
DX: R56.9 Unspecified convulsions (principal)
CPT/HCPCS: 70551

== ENCOUNTER → 2024-02-04 | Outpatient (CLI) | payer BC | END | disposition home or self-care (01) | LOC: LABWHC1 07:46 | PROVIDERS: ATTEND Psychiatry & Neurology Neurology | DX: G40.209 Localization-related (focal) (partial) symptomatic epilepsy and epileptic syndromes with complex partial seizures, not intractable, without status epilepticus (principal) | CPT/HCPCS: 36415; 80177 ==

== ENCOUNTER → 2024-05-20 | Outpatient (CLI) | payer BC | END | disposition home or self-care (01) | LOC: LABWHC1 07:41 | PROVIDERS: ATTEND Psychiatry & Neurology Neurology | DX: G40.209 Localization-related (focal) (partial) symptomatic epilepsy and epileptic syndromes with complex partial seizures, not intractable, without status epilepticus (principal) | CPT/HCPCS: 36415; 80177 ==

== ENCOUNTER → 2024-12-25 | Outpatient (CLI) | payer BC ==
--- NOTE | 2024-12-25 11:08 | XR ---
EXAMINATION TYPE: XR Hip Complete RT DATE OF EXAM: 12/25/2024 10:59 AM COMPARISON: None. CLINICAL INDICATION: Female, 59 years old with history of M25.551 HIP PAIN, pain TECHNIQUE: 2 view(s) obtained. FINDINGS: Femoral head articulates with the acetabulum. Joint space is preserved. No acute fracture or dislocat ion evident. IMPRESSION: 1. No acute osseous abnormality right hip [facility], , 12/25/2024 11:06 AM
== END | disposition home or self-care (01) ==
LOC: RADXRMAIN 10:20
PROVIDERS: ATTEND Family Medicine
DX: M25.551 Pain in right hip (principal)
CPT/HCPCS: 73502

== ENCOUNTER → 2024-12-25 | Outpatient (CLI) | payer BC | END | disposition home or self-care (01) | LOC: LABWHC1 09:13 | PROVIDERS: ATTEND Psychiatry & Neurology Neurology | DX: G40.209 Localization-related (focal) (partial) symptomatic epilepsy and epileptic syndromes with complex partial seizures, not intractable, without status epilepticus (principal) | CPT/HCPCS: 36415; 80177 ==